=== PATIENT | male | born 1960 | race Caucasian/White ===

== ENCOUNTER 2016-10-05 17:24 | Emergency (ER) | payer MEDICAID ==
[2015-12-18 02:23] VITALS: BMI 36.6
[~2016-10-05 17:24] MED LIST: ATROVENT 0.06%15 ML NS; CELEXA20 MG PO; RESTORIL15 MG PO; RESTORIL7.5 MG
[2016-10-05 18:21] LABS: BASOPHILS 0.5 % (0.0-2.0); EOSINOPHILS 2.3 % (0-7); HEMATOCRIT 47.5 % (42.0-54.0); HEMOGLOBIN 15.6 g/dL (13.5-17.5); IMMATURE GRANULOCYTES 0.3 % (0-5); LYMPHOCYTES 28.7 % (15-50); MCH 29.3 pg (26.0-34.0); MCHC 32.8 g/dL (31.0-37.0); MCV 89.1 fL (80.0-100.0); MEAN PLATELET VOLUME 11.1 fL (7.4-10.4); MONOCYTES 11.1 % (2-11); NEUTROPHILS 57.1 % (40-80); PLATELET COUNT 236 10x3/uL (130-400); RBC 5.33 10x6/uL (4.20-6.10); RDW 13.7 % (11.5-14.5); WBC 7.7 10x3/uL (4.8-10.8)
[2016-10-05 18:41] LABS: ALBUMIN 3.5 g/dL (3.4-5.0); ALKALINE PHOSPHATASE 95 U/L (46-116); ALT (SGPT) 50 U/L (10-68); BILIRUBIN - TOTAL 0.24 mg/dL (0.2-1.3); CALC OSMOLALITY 283 mosm/kg (275-300); CALCIUM 9.5 mg/dL (8.5-10.1); CARBON DIOXIDE 29.5 mmol/L (21.0-32.0); CHLORIDE - SERUM 105 mmol/L (98-107); CREATININE - SERUM 0.9 mg/dL (0.6-1.3); GLUCOSE 104 mg/dL (74-106); POTASSIUM - SERUM 4.1 mmol/L (3.5-5.1); PROTEIN - SERUM 7.2 g/dL (6.4-8.2); SODIUM 142 mmol/L (136-145); UREA NITROGEN 15 mg/dL (7-18); eGFR NON AFRICAN AMERICAN > 90 mL/min (90-120)
[2016-10-05 18:45] LABS: UDS - AMPHET NEGATIVE QUAL (NEGATIVE); UDS - BARB NEGATIVE QUAL (NEGATIVE); UDS - BENZO NEGATIVE QUAL (NEGATIVE); UDS - COCAINE POSITIVE QUAL (NEGATIVE); UDS - METH NEGATIVE QUAL (NEGATIVE); UDS - OPIATE NEGATIVE QUAL (NEGATIVE); UDS - PCP NEGATIVE QUAL (NEGATIVE); UDS - THC NEGATIVE QUAL (NEGATIVE)
[2016-10-05 18:51] LABS: APPEARANCE HAZY (CLEAR); BILIRUBIN NEGATIVE (NEGATIVE); COLOR YELLOW (YELLOW); GLUCOSE NEGATIVE (NEGATIVE); KETONE NEGATIVE (NEGATIVE); LEUKOCYTE ESTERASE 2+ (NEGATIVE); NITRITE POSITIVE (NEGATIVE); PROTEIN NEGATIVE (NEGATIVE); SPECIFIC GRAVITY 1.025 (1.005-1.020); UROBILINOGEN NORMAL (NORMAL)
[2016-10-05 18:52] LABS: WHITE CELLS - URINE 25-50 /hpf (0-5)
[2016-10-05 18:53] LABS: BACTERIA MANY /hpf (NONE SEEN)
== END 2016-10-05 19:18 | disposition home or self-care (01) ==
LOC: D.ER 17:24
PROVIDERS: Emergency Medicine
DX: R45.851 Suicidal ideations (principal); N39.0 Urinary tract infection, site not specified; F32.9 Major depressive disorder, single episode, unspecified; F14.10 Cocaine abuse, uncomplicated; G47.00 Insomnia, unspecified; I50.9 Heart failure, unspecified; F17.200 Nicotine dependence, unspecified, uncomplicated

== ENCOUNTER 2017-03-08 15:50 | Observation (INO) | payer MEDICAID ==
[~2017-03-08] VITALS: Ht 193 cm; Wt 149.8 kg
[2017-03-08 16:40] LABS: BASOPHILS 0.3 % (0-2); EOSINOPHILS 1.9 % (0-7); HEMATOCRIT 45.6 % (42.0-54.0); HEMOGLOBIN 14.7 g/dL (13.5-17.5); IMMATURE GRANULOCYTES 0.1 % (0-5); MCH 29.2 pg (26.0-34.0); MCHC 32.2 g/dL (31.0-37.0); MCV 90.5 fL (80.0-100.0); MEAN PLATELET VOLUME 11.6 fL (7.4-10.4); MONOCYTES 9.7 % (2-11); PLATELET COUNT 210 10x3/uL (130-400); RBC 5.04 10x6/uL (4.20-6.10); WBC 7.7 10x3/uL (4.8-10.8)
[2017-03-08 17:05] LABS: ALBUMIN 3.2 g/dL (3.4-5.0); ALKALINE PHOSPHATASE 94 U/L (46-116); ALT (SGPT) 31 U/L (10-68); APTT 30.2 SECONDS (22.8-39.4); BILIRUBIN - TOTAL 0.16 mg/dL (0.2-1.3); CALC OSMOLALITY 280 mosm/kg (275-300); CALCIUM 8.7 mg/dL (8.5-10.1); CHLORIDE - SERUM 104 mmol/L (98-107); CREATININE - SERUM 0.9 mg/dL (0.6-1.3); GLUCOSE 114 mg/dL (74-106); INR 0.93 (0.85-1.17); POTASSIUM - SERUM 4.3 mmol/L (3.5-5.1); PROTEIN - SERUM 6.9 g/dL (6.4-8.2); PROTIME 12.3 SECONDS (11.6-15.0); SODIUM 140 mmol/L (136-145); UREA NITROGEN 16 mg/dL (7-18); eGFR NON AFRICAN AMERICAN > 90 mL/min (90-120)
[2017-03-08 17:16] LABS: CHOL - HDL RATIO 6.1 ratio (2.3-4.9); CHOLESTEROL, TOTAL 165 mg/dL (0-200); CKMB 2.9 U/L (0.0-3.6); CREATINE KINASE 122 UL (21-232); HDL CHOLESTEROL 27 mg/dL (32-96); LDL CHOLESTEROL 102 mg/dL (0-100); LDL-HDL RATIO 3.8 ratio (1.5-3.5); TRIGLYCERIDE 183 mg/dL (30-200); TROPONIN-I < 0.017 ng/mL (0.000-0.060)
[2017-03-08 20:07] LABS: CREATINE KINASE 101 UL (21-232)
[2017-03-08 20:09] LABS: TROPONIN-I < 0.017 ng/mL (0.000-0.060)
[2017-03-08 21:16] VITALS: Ht 193 cm; Wt 149.8 kg
--- NOTE | 2017-03-08 23:44 | NUR ---
PT RESTING WELL WITHOUT C/O OR DISTRESS NOTED. NO CHANGES NOTED IN ASSESSMENT. CALL LIGHT WITHIN REACH. WILL CONT TO MONITOR.
[2017-03-09 00:59] VITALS: BP 92/72
[2017-03-09 03:07] LABS: CREATINE KINASE 92 UL (21-232)
[2017-03-09 03:11] LABS: TROPONIN-I < 0.017 ng/mL (0.000-0.060)
--- NOTE | 2017-03-09 07:16 | NUR ---
ASSESSESSMENT COMPLETED.TELEMERTY SHOWS SB AT 56. LEFT HAND SL, PATENT. LEFT INSIDE UPER THIGHT WITH A FIRM AREA THAT IN TENDER TO TOUCH, WARM TO TOUCH. NPO UNTIL SEEN BY THE DOCTOR
[2017-03-09 08:02] LABS: CREATINE KINASE 60 UL (21-232); TROPONIN-I < 0.017 ng/mL (0.000-0.060)
[2017-03-09 08:38] VITALS: BP 128/76
--- NOTE | 2017-03-09 09:31 | NUR ---
LYING QUIETLY. DENIES AANY NEEDS. SR UP WITH CALL LIGHT IN REACH. WILL MONITOR
--- NOTE | 2017-03-09 10:29 | NUR ---
PATIENT IS BEING DISCHARGED HOME. COMPLAINTS OF LOWER RIGHT INNER CALF PAIN, SMALL KNOW FELT THERE. MYSELF AND ASHANTI ASKED DR VASQUEZ TO CHECK LEG. HE FELT IT AND TOLD US AND THE PATIENT THAT IT WAS NOT VASCULAR. WILL CONTINUE TO MONITOR.
[2017-03-09 11:46] VITALS: BP 147/71
--- NOTE | 2017-03-09 13:48 | NUR ---
PT HAD BEEN DISCHARGED BUT LEFT WITH OUT WAINTING FOR DISCHARGE PAPERS.
--- NOTE | 2017-03-11 10:11 | HP ---
PATIENT: SHAWN DUGAN MEDICAL RECORD: [id number] ACCOUNT: [id number] LOCATION:[address] : 56 ADMISSION DATE: 03/08/17 HISTORY AND PHYSICAL EXAMINATION ADMITTING DIAGNOSES: 1. Chest pain. 2. Family history of coronary artery disease. HISTORY OF PRESENT ILLNESS: This is a gentleman with no previous cardiac history, no previous medical history, who presents with 2 days of intermittent chest pain. It is a mild pain and he had relief with 1 sublingual nitro yesterday. He has had no further episodes of pain. Troponin is normal. EKG is normal. He does have a family history of coronary artery disease and this is only real risk factor. REVIEW OF SYSTEMS: The patient reports easy bruising but reports no swollen glands. The patient reports no fever, no night sweats, no significant weight gain, no significant weight loss. No significant exercise tolerance. The patient reports no dry eyes, no irritation, no vision change. Patient reports no difficulty hearing and no ear pain. Patient reports no frequent nose bleeds or nose and sinus problems. Patient reports on arm pain on exertion. No shortness of breath while lying down. No history of heart murmur. Patient reports no cough, no wheezing or coughing up blood. Patient reports no abdominal pain, no vomiting. Normal appetite. No diarrhea and not vomiting blood. No nausea and no constipation. Patient reports no incontinence. No difficulty urinating. No hematuria. No increased frequency. Patient reports no muscle aches. No weakness, no arthralgias, no back pain. No swelling of the extremities. Patient reports no abnormal mole, no jaundice, no rashes. Reports no loss of consciousness. No weakness and no numbness. No seizures, dizziness, or headaches. The patient reports no depression, no sleep disturbance, feeling safe in a relationship and no alcohol abuse. Patient reports on fatigue. Reports no runny nose or sinus pressure. No itching, no hives, and no frequent sneezing. PHYSICAL EXAMINATION: GENERAL APPEARANCE: Well-nourished, well-developed, appears stated age. Level of distress, comfortable. PSYCHIATRIC: Mental status, alert, normal affect. Orientation, oriented to time, place and person. EYES: Lids and conjunctiva, noninjected. No discharge, no pallor. ENT: Lips, teeth, gums, normal dentition. Oropharynx, no cyanosis, no pallor. NECK: Carotid arteries, bilateral normal upstroke, no bruits, no thrills. JUGULAR VEINS: No jugular venous pressure or distention. CERVICAL LYMPH NODES: Nontender, nonenlarged. THYROID: Not enlarged. Nontender. No nodules. LUNGS: Respiratory effort, unlabored. CHEST: Normal curvature. No thoracic deformity. No chest wall tenderness. Percussion, resonant. Auscultation, clear. No wheezes, no rales, no rhonchi. CARDIOVASCULAR: Precordial exam, nondisplaced. No heaves or pericardial thrills. Rate and rhythm, regular. Heart sounds, normal S1, normal S2. No S3, no gallop, no rub. Systolic murmur, not heard. Diastolic murmur, not heard. EXTREMITIES: No cyanosis, no edema. Peripheral pulses, full and equal in all extremities, except as noted. No bruits appreciated. ABDOMEN: Soft, nondistended. Normal aorta. No bruit. Nontender. No masses. HISTORY AND PHYSICAL [id number] JOHANNELNICKSHAWN Liver, nontender, no hepatomegaly. Spleen, nontender, no splenomegaly. MUSCULOSKELETAL: No joint tenderness. No joint swelling. No erythema. NEUROLOGICAL: Normal gait, normal strength, normal tone. SKIN: Warm and dry. OVERALL IMPRESSION: Chest pain. Normal EKG, normal troponin. We will plan for risk stratification with stress testing Cardiolite imaging as an outpatient in the near future. TRANSINT:[id number] Voice Confirmation ID: [id number] DOCUMENT ID: [id number] CITLALI VASQUEZ MD at 1011 CC: [id number] DICTATION DATE: 03/09/17 1014 SECURITY SPECIALIST: 03/09/17 1113 DIS IN 03/09/17 [facility] [address] [facility] [place] [address]
--- NOTE | 2017-03-11 10:11 | DS ---
PATIENT:SHAWN PADILLA :56 MEDICAL RECORD: [id number] DISCHARGE SUMMARY ADMISSION DATE: 03/08/17 DISCHARGE DATE: 03/09/17 DISCHARGE DIAGNOSES: 1. Chest pain. 2. Family history of coronary artery disease. HOSPITAL COURSE: Mr. Padilla presents with chest pain. He has a family history of coronary artery disease. His troponin was normal times 3. His EKG was with no changes and normal. He was discharged home to risk stratify with stress testing Cardiolite imaging as an outpatient. TRANSINT:[id number] Voice Confirmation ID: [id number] DOCUMENT ID: [id number] CITLALI VASQUEZ MD at 1011 CC: [id number] DICTATION DATE: 03/09/17 1015 FINANCE ADMIN: 03/09/17 2340 DIS IN 03/09/17 [facility] [id number] [place] [address]
== END 2017-03-09 13:49 | disposition home or self-care (01) ==
LOC: D.ER 15:50 → OBSVTIME 18:26 → D.M2 18:26
PROVIDERS: Emergency Medicine; Family Medicine; ADMIT Internal Medicine Interventional Cardiology
DX: R07.9 Chest pain, unspecified (principal); Z82.49 Family history of ischemic heart disease and other diseases of the circulatory system

== ENCOUNTER → 2017-04-01 06:57 | Outpatient (CLI) | payer MEDICAID ==
[2017-03-08 21:16] VITALS: BMI 40.6
--- NOTE | ~2017-04-01 | ST ---
PATIENT:SHAWN DUGAN MEDICAL RECORD: [id number] SEX: M LOCATION:[facility] ORDER #: ADMISSION DATE: 04/01/17 AGE OF PATIENT: 56 REFERRING PHYSICIAN: INTERPRETING PHYSICIAN: CITLALI VASQUEZ MD NUCLEAR STRESS TEST DESCRIPTION: The patient was exercised according to standard Lexiscan protocol with 32.4 millicuries of sestamibi injected at peak stress. Rest images were done previously with 12.3 millicuries. FINDINGS: GATED IMAGING: Gated SPECT reveals a preserved ejection fraction of 57% with good wall motion, thickening, and brightening throughout all segments. SPECT: SPECT imaging was performed using Cardiolite as the myocardial perfusion imaging agent. There is homogeneous uptake throughout all segments but no evidence of inducible ischemia or previous infarction. OVERALL IMPRESSION: This is a normal nuclear stress test with no evidence of inducible ischemia or previous infarction. Gated SPECT reveals a preserved ejection fraction of 57%. In this patient with ongoing symptomatology, the current scan has a low likelihood of hemodynamically significant coronary artery disease. Would evaluate noncardiac etiology chest discomfort. CITLALI VASQUEZ MD CC: [id number] DICTATION DATE: 04/01/17 1400 COMPOUNDING PHARMACY TECHNICIAN: DM 04/02/17 1148 DEP CLI 04/01/[address] [facility] [address] [place] [address]
== END | disposition home or self-care (01) ==
LOC: D.NM 06:57
DX: R07.9 Chest pain, unspecified (principal)

== ENCOUNTER 2017-09-30 19:20 | Emergency (ER) | payer MEDICAID ==
[2017-03-08 21:16] VITALS: BMI 40.6
[2017-09-30 20:08] LABS: BASOPHILS 0.3 % (0-2); HEMOGLOBIN 13.5 g/dL (13.5-17.5); IMMATURE GRANULOCYTES 0.2 % (0-5); LYMPHOCYTES 28.1 % (15-50); MCH 28.5 pg (26.0-34.0); MCHC 32.1 g/dL (31.0-37.0); MCV 88.8 fL (80.0-100.0); MEAN PLATELET VOLUME 10.8 fL (7.4-10.4); MONOCYTES 8.3 % (2-11); NEUTROPHILS 61.1 % (40-80); PLATELET COUNT 250 10x3/uL (130-400); RBC 4.73 10x6/uL (4.20-6.10); RDW 13.9 % (11.5-14.5); WBC 9.1 10x3/uL (4.8-10.8)
[2017-09-30 20:22] LABS: ALBUMIN 3.2 g/dL (3.4-5.0); ALKALINE PHOSPHATASE 108 U/L (46-116); ALT (SGPT) 22 U/L (10-68); BILIRUBIN - TOTAL 0.12 mg/dL (0.2-1.3); CALC OSMOLALITY 281 mosm/kg (275-300); CALCIUM 8.5 mg/dL (8.5-10.1); CARBON DIOXIDE 26.5 mmol/L (21.0-32.0); CHLORIDE - SERUM 104 mmol/L (98-107); GLUCOSE 142 mg/dL (74-106); POTASSIUM - SERUM 3.7 mmol/L (3.5-5.1); PROTEIN - SERUM 6.6 g/dL (6.4-8.2); SODIUM 141 mmol/L (136-145); UREA NITROGEN 11 mg/dL (7-18); eGFR NON AFRICAN AMERICAN 81 mL/min (90-120)
[2017-09-30 21:45] LABS: APPEARANCE CLEAR (CLEAR); BILIRUBIN NEGATIVE (NEGATIVE); COLOR YELLOW (YELLOW); GLUCOSE NEGATIVE (NEGATIVE); KETONE NEGATIVE (NEGATIVE); NITRITE NEGATIVE (NEGATIVE); PROTEIN NEGATIVE (NEGATIVE); SPECIFIC GRAVITY 1.015 (1.005-1.020); UROBILINOGEN NORMAL (NORMAL)
[2017-09-30 23:31] LABS: UDS - AMPHET NEGATIVE QUAL (NEGATIVE); UDS - BARB NEGATIVE QUAL (NEGATIVE); UDS - BENZO NEGATIVE QUAL (NEGATIVE); UDS - COCAINE NEGATIVE QUAL (NEGATIVE); UDS - OPIATE NEGATIVE QUAL (NEGATIVE); UDS - PCP NEGATIVE QUAL (NEGATIVE); UDS - THC NEGATIVE QUAL (NEGATIVE)
== END 2017-10-01 03:02 | disposition short-term general hospital (02) ==
LOC: D.ER 19:20
PROVIDERS: Family Medicine; Physician Assistant
DX: F41.9 Anxiety disorder, unspecified (principal); F33.9 Major depressive disorder, recurrent, unspecified; R45.851 Suicidal ideations; Z96.651 Presence of right artificial knee joint

== ENCOUNTER 2018-01-30 00:28 | Emergency (ER) | payer MEDICAID ==
[2017-03-08 21:16] VITALS: BMI 40.6
== END 2018-01-30 01:21 | disposition home or self-care (01) ==
LOC: D.ER 00:28
DX: H66.92 Otitis media, unspecified, left ear (principal); H60.92 Unspecified otitis externa, left ear

== ENCOUNTER 2018-02-06 17:37 | Emergency (ER) | payer MEDICAID ==
[2017-03-08 21:16] VITALS: BMI 40.6
[2018-02-06 18:01] LABS: BASOPHILS 0.9 % (0-2); EOSINOPHILS 3.8 % (0-7); HEMATOCRIT 45.3 % (42.0-54.0); IMMATURE GRANULOCYTES 0.3 % (0-5); LYMPHOCYTES 25.9 % (15-50); MCH 28.1 pg (26.0-34.0); MCHC 33.1 g/dL (31.0-37.0); MONOCYTES 8.9 % (2-11); NEUTROPHILS 60.2 % (40-80); RBC 5.33 10x6/uL (4.20-6.10); RDW 14.4 % (11.5-14.5); WBC 7.4 10x3/uL (4.8-10.8)
[2018-02-06 18:15] LABS: ALBUMIN 3.3 g/dL (3.4-5.0); ALKALINE PHOSPHATASE 118 U/L (46-116); ALT (SGPT) 28 U/L (10-68); BILIRUBIN - TOTAL 0.27 mg/dL (0.2-1.3); CALC OSMOLALITY 280 mosm/kg (275-300); CALCIUM 8.9 mg/dL (8.5-10.1); CARBON DIOXIDE 26.8 mmol/L (21.0-32.0); CHLORIDE - SERUM 104 mmol/L (98-107); GLUCOSE 113 mg/dL (74-106); PROTEIN - SERUM 7.1 g/dL (6.4-8.2); SODIUM 140 mmol/L (136-145); UREA NITROGEN 16 mg/dL (7-18); eGFR NON AFRICAN AMERICAN 81 mL/min (90-120)
[2018-02-06 18:19] LABS: PLATELET COUNT 109 10x3/uL (130-400); POTASSIUM - SERUM 4.5 mmol/L (3.5-5.1)
[2018-02-06 18:27] LABS: CKMB 1.7 U/L (0.0-3.6); CREATINE KINASE 118 UL (21-232); PRO BNP 52 pg/mL (0-125)
[2018-02-06 18:33] LABS: TROPONIN-I < 0.017 ng/mL (0.000-0.060)
== END 2018-02-06 18:47 | disposition home or self-care (01) ==
LOC: D.ER 17:37
PROVIDERS: Emergency Medicine
DX: H92.02 Otalgia, left ear (principal); M26.622 Arthralgia of left temporomandibular joint; R22.43 Localized swelling, mass and lump, lower limb, bilateral; F17.200 Nicotine dependence, unspecified, uncomplicated; I45.10 Unspecified right bundle-branch block

== ENCOUNTER 2018-02-26 16:11 | Emergency (ER) | payer MEDICAID ==
[~2018-02-26] VITALS: Ht 193 cm; Wt 136.4 kg
[2018-02-26 16:16] VITALS: Ht 193 cm; Wt 136.4 kg
[2018-02-26 16:50] LABS: BASOPHILS 0.5 % (0-2); EOSINOPHILS 2.1 % (0-7); HEMATOCRIT 47.3 % (42.0-54.0); HEMOGLOBIN 15.8 g/dL (13.5-17.5); IMMATURE GRANULOCYTES 0.2 % (0-5); LYMPHOCYTES 26.4 % (15-50); MCH 28.8 pg (26.0-34.0); MCHC 33.4 g/dL (31.0-37.0); MCV 86.3 fL (80.0-100.0); MEAN PLATELET VOLUME 11.5 fL (7.4-10.4); MONOCYTES 10.2 % (2-11); NEUTROPHILS 60.6 % (40-80); RBC 5.48 10x6/uL (4.20-6.10); RDW 14.5 % (11.5-14.5)
[2018-02-26 16:54] LABS: PLATELET COUNT 219 10x3/uL (130-400)
[2018-02-26 16:55] LABS: APPEARANCE CLEAR (CLEAR); COLOR YELLOW (YELLOW)
[2018-02-26 16:56] LABS: BILIRUBIN NEGATIVE (NEGATIVE); GLUCOSE NEGATIVE (NEGATIVE); KETONE NEGATIVE (NEGATIVE); NITRITE NEGATIVE (NEGATIVE); PROTEIN NEGATIVE (NEGATIVE); UROBILINOGEN NORMAL (NORMAL)
[2018-02-26 17:33] LABS: ALBUMIN 3.5 g/dL (3.4-5.0); ALKALINE PHOSPHATASE 111 U/L (46-116); ALT (SGPT) 34 U/L (10-68); BILIRUBIN - TOTAL 0.27 mg/dL (0.2-1.3); CALC OSMOLALITY 279 mosm/kg (275-300); CALCIUM 9.3 mg/dL (8.5-10.1); CHLORIDE - SERUM 103 mmol/L (98-107); GLUCOSE 112 mg/dL (74-106); POTASSIUM - SERUM 3.9 mmol/L (3.5-5.1); PROTEIN - SERUM 7.6 g/dL (6.4-8.2); SODIUM 140 mmol/L (136-145); UREA NITROGEN 13 mg/dL (7-18); eGFR NON AFRICAN AMERICAN 81 mL/min (90-120)
[2018-02-26 18:14] LABS: UDS - AMPHET POSITIVE QUAL (NEGATIVE); UDS - BARB NEGATIVE QUAL (NEGATIVE); UDS - BENZO NEGATIVE QUAL (NEGATIVE); UDS - COCAINE NEGATIVE QUAL (NEGATIVE); UDS - OPIATE NEGATIVE QUAL (NEGATIVE); UDS - PCP NEGATIVE QUAL (NEGATIVE); UDS - THC NEGATIVE QUAL (NEGATIVE)
[2018-02-26 20:12] VITALS: BP 134/74
== END 2018-02-26 22:13 ==
LOC: D.ER 16:11
PROVIDERS: Family Medicine
DX: F32.9 Major depressive disorder, single episode, unspecified (principal); R45.851 Suicidal ideations; Z86.59 Personal history of other mental and behavioral disorders; F17.200 Nicotine dependence, unspecified, uncomplicated

== ENCOUNTER 2018-03-24 14:05 | Emergency (ER) | payer MEDICAID ==
[~2018-03-24] VITALS: Ht 193 cm; Wt 136.4 kg
[2018-03-24 14:10] VITALS: Ht 193 cm; Wt 136.4 kg
[2018-03-24] MEDS ORDERED: DESERYL100 MG PO (14:17)
[2018-03-24] MEDS ORDERED: SEROQUEL100 MG PO (14:17)
[2018-03-24 14:50] LABS: APPEARANCE CLEAR (CLEAR); COLOR YELLOW (YELLOW); UDS - AMPHET NEGATIVE QUAL (NEGATIVE); UDS - BARB NEGATIVE QUAL (NEGATIVE); UDS - BENZO NEGATIVE QUAL (NEGATIVE); UDS - COCAINE NEGATIVE QUAL (NEGATIVE); UDS - OPIATE NEGATIVE QUAL (NEGATIVE); UDS - PCP NEGATIVE QUAL (NEGATIVE); UDS - THC NEGATIVE QUAL (NEGATIVE)
[2018-03-24 14:51] LABS: BILIRUBIN NEGATIVE (NEGATIVE); GLUCOSE NEGATIVE (NEGATIVE); KETONE NEGATIVE (NEGATIVE); NITRITE NEGATIVE (NEGATIVE); PROTEIN NEGATIVE (NEGATIVE); UROBILINOGEN NORMAL (NORMAL)
[2018-03-24 14:53] LABS: BACTERIA FEW /hpf (NONE SEEN); RED CELLS - URINE 0-5 /hpf (0-5)
[2018-03-24 15:19] LABS: BASOPHILS 0.6 % (0-2); EOSINOPHILS 1.3 % (0-7); HEMATOCRIT 45.1 % (42.0-54.0); IMMATURE GRANULOCYTES 0.3 % (0-5); LYMPHOCYTES 22.7 % (15-50); MCH 28.7 pg (26.0-34.0); MCHC 33.3 g/dL (31.0-37.0); MCV 86.4 fL (80.0-100.0); MEAN PLATELET VOLUME 11.3 fL (7.4-10.4); MONOCYTES 7.7 % (2-11); NEUTROPHILS 67.4 % (40-80); RBC 5.22 10x6/uL (4.20-6.10); RDW 13.9 % (11.5-14.5)
[2018-03-24 15:27] LABS: PLATELET COUNT 267 10x3/uL (130-400)
[2018-03-24 15:32] LABS: ALBUMIN 3.2 g/dL (3.4-5.0); ALKALINE PHOSPHATASE 104 U/L (46-116); ALT (SGPT) 22 U/L (10-68); BILIRUBIN - TOTAL 0.19 mg/dL (0.2-1.3); CALC OSMOLALITY 284 mosm/kg (275-300); CALCIUM 8.7 mg/dL (8.5-10.1); CARBON DIOXIDE 29.7 mmol/L (21.0-32.0); CHLORIDE - SERUM 107 mmol/L (98-107); CREATININE - SERUM 0.9 mg/dL (0.6-1.3); GLUCOSE 89 mg/dL (74-106); POTASSIUM - SERUM 4.1 mmol/L (3.5-5.1); SODIUM 143 mmol/L (136-145); UREA NITROGEN 14 mg/dL (7-18); eGFR NON AFRICAN AMERICAN > 90 mL/min (90-120)
[2018-03-24 15:42] LABS: THYROID STIMULATING HORMONE 0.28 uIU/mL (0.36-3.74)
[2018-03-24 22:03] VITALS: BP 132/74
== END 2018-03-24 22:07 ==
LOC: D.ER 14:05
PROVIDERS: Family Medicine
DX: F32.9 Major depressive disorder, single episode, unspecified (principal); R51 Headache; R45.851 Suicidal ideations; F17.200 Nicotine dependence, unspecified, uncomplicated

== ENCOUNTER 2018-05-04 17:53 | Emergency (ER) | payer MEDICAID ==
[~2018-05-04] VITALS: Ht 193 cm; Wt 131.8 kg
[~2018-05-04 17:53] MED LIST changes: +DESERYL100 MG PO; +SEROQUEL100 MG PO
[2018-05-04 18:00] VITALS: Ht 193 cm; Wt 131.8 kg
[2018-05-04 18:26] LABS: APPEARANCE CLEAR (CLEAR); BILIRUBIN NEGATIVE (NEGATIVE); COLOR YELLOW (YELLOW); GLUCOSE NEGATIVE (NEGATIVE); KETONE NEGATIVE (NEGATIVE); NITRITE NEGATIVE (NEGATIVE); PROTEIN NEGATIVE (NEGATIVE); SPECIFIC GRAVITY 1.005 (1.005-1.020); UROBILINOGEN NORMAL (NORMAL)
[2018-05-04 18:29] LABS: BASOPHILS 0.6 % (0-2); EOSINOPHILS 1.8 % (0-7); HEMATOCRIT 45.5 % (42.0-54.0); HEMOGLOBIN 14.9 g/dL (13.5-17.5); IMMATURE GRANULOCYTES 0.2 % (0-5); MCH 28.5 pg (26.0-34.0); MCHC 32.7 g/dL (31.0-37.0); MEAN PLATELET VOLUME 11.7 fL (7.4-10.4); MONOCYTES 9.1 % (2-11); NEUTROPHILS 57.3 % (40-80); PLATELET COUNT 218 10x3/uL (130-400); RBC 5.23 10x6/uL (4.20-6.10); RDW 14.1 % (11.5-14.5); WBC 6.6 10x3/uL (4.8-10.8)
[2018-05-04 18:29] LABS: UDS - AMPHET NEGATIVE QUAL (NEGATIVE); UDS - BARB NEGATIVE QUAL (NEGATIVE); UDS - BENZO NEGATIVE QUAL (NEGATIVE); UDS - COCAINE NEGATIVE QUAL (NEGATIVE); UDS - OPIATE NEGATIVE QUAL (NEGATIVE); UDS - PCP NEGATIVE QUAL (NEGATIVE); UDS - THC NEGATIVE QUAL (NEGATIVE)
[2018-05-04 18:30] LABS: BACTERIA FEW /hpf (NONE SEEN); EPITHELIAL CELLS NSEEN /hpf (0-5); RED CELLS - URINE RARE /hpf (0-5); WHITE CELLS - URINE OCC /hpf (0-5)
[2018-05-04 18:45] LABS: ALKALINE PHOSPHATASE 101 U/L (46-116); ALT (SGPT) 26 U/L (10-68); BILIRUBIN - TOTAL 0.19 mg/dL (0.2-1.3); CALC OSMOLALITY 281 mosm/kg (275-300); CALCIUM 8.2 mg/dL (8.5-10.1); CARBON DIOXIDE 27.2 mmol/L (21.0-32.0); CHLORIDE - SERUM 105 mmol/L (98-107); CREATININE - SERUM 0.9 mg/dL (0.6-1.3); POTASSIUM - SERUM 3.8 mmol/L (3.5-5.1); PROTEIN - SERUM 6.4 g/dL (6.4-8.2); SODIUM 141 mmol/L (136-145); UREA NITROGEN 11 mg/dL (7-18); eGFR NON AFRICAN AMERICAN > 90 mL/min (90-120)
[2018-05-04 18:49] LABS: GLUCOSE 137 mg/dL (74-106)
[2018-05-05 11:04] VITALS: BP 113/60
== END 2018-05-05 12:02 ==
LOC: D.ER 17:53
PROVIDERS: Family Medicine
DX: F32.9 Major depressive disorder, single episode, unspecified (principal)

== ENCOUNTER 2018-06-15 07:27 | Emergency (ER) | payer MEDICAID ==
[~2018-06-15] VITALS: Ht 193 cm; Wt 131.8 kg
[2018-06-15 07:29] VITALS: Ht 193 cm; Wt 131.8 kg
[2018-06-15] MEDS ORDERED: STERAPRED DS 1210 MG PO (07:36)
[2018-06-15 07:46] VITALS: BP 106/62
== END 2018-06-15 07:47 | disposition home or self-care (01) ==
LOC: D.ER 07:27
DX: L23.7 Allergic contact dermatitis due to plants, except food (principal); F17.200 Nicotine dependence, unspecified, uncomplicated

== ENCOUNTER 2018-11-16 20:58 | Emergency (ER) | payer MEDICAID ==
[~2018-11-16] VITALS: Ht 193 cm; Wt 127.0 kg
[~2018-11-16 20:58] MED LIST changes: +STERAPRED DS 1210 MG PO
[2018-11-16 21:04] VITALS: Ht 193 cm; Wt 127.0 kg
[2018-11-16 21:28] LABS: APTT 31.5 SECONDS (22.8-39.4); INR 0.92 (0.85-1.17); PROTIME 11.9 SECONDS (11.6-15.0)
[2018-11-16 21:37] LABS: ALBUMIN 3.2 g/dL (3.4-5.0); ALKALINE PHOSPHATASE 109 U/L (46-116); ALT (SGPT) 28 U/L (10-68); BILIRUBIN - TOTAL 0.27 mg/dL (0.2-1.3); CALC OSMOLALITY 282 mosm/kg (275-300); CALCIUM 8.3 mg/dL (8.5-10.1); CARBON DIOXIDE 25.5 mmol/L (21.0-32.0); CHLORIDE - SERUM 105 mmol/L (98-107); CREATININE - SERUM 0.8 mg/dL (0.6-1.3); GLUCOSE 106 mg/dL (74-106); POTASSIUM - SERUM 4.1 mmol/L (3.5-5.1); PROTEIN - SERUM 6.8 g/dL (6.4-8.2); SODIUM 141 mmol/L (136-145); UREA NITROGEN 17 mg/dL (7-18); eGFR NON AFRICAN AMERICAN > 90 mL/min (90-120)
[2018-11-16 21:47] LABS: CREATINE KINASE 127 UL (21-232); PRO BNP 179 pg/mL (0-125)
[2018-11-16 21:49] LABS: CKMB 0.5 U/L (0.0-3.6); TROPONIN-I < 0.017 ng/mL (0.000-0.060)
[2018-11-16 21:53] LABS: BASOPHILS 0.5 % (0-2); EOSINOPHILS 2.4 % (0-7); HEMOGLOBIN 15.1 g/dL (13.5-17.5); IMMATURE GRANULOCYTES 0.1 % (0-5); LYMPHOCYTES 35.5 % (15-50); MCH 28.8 pg (26.0-34.0); MCHC 32.8 g/dL (31.0-37.0); MCV 87.8 fL (80.0-100.0); MEAN PLATELET VOLUME 12.1 fL (7.4-10.4); MONOCYTES 8.2 % (2-11); NEUTROPHILS 53.3 % (40-80); PLATELET COUNT 249 10x3/uL (130-400); RBC 5.24 10x6/uL (4.20-6.10); WBC 8.1 10x3/uL (4.8-10.8)
[2018-11-16 23:42] VITALS: BP 120/74
== END 2018-11-16 23:43 | disposition home or self-care (01) ==
LOC: D.ER 20:58
PROVIDERS: Family Medicine
DX: R60.0 Localized edema (principal); F17.200 Nicotine dependence, unspecified, uncomplicated; M79.672 Pain in left foot; M79.671 Pain in right foot

== ENCOUNTER 2018-12-15 16:54 | Emergency (ER) | payer MEDICAID ==
[~2018-12-15] VITALS: Ht 193 cm; Wt 136.4 kg
[2018-12-15 17:12] VITALS: Ht 193 cm; Wt 136.4 kg
[2018-12-15] MEDS ORDERED: ULTRAM50 MG PO (18:42)
[2018-12-15 19:15] VITALS: BP 112/58
== END 2018-12-15 19:17 | disposition home or self-care (01) ==
LOC: D.ER 16:54
DX: S20.212A Contusion of left front wall of thorax, initial encounter (principal); V19.9XXA Pedal cyclist (driver) (passenger) injured in unspecified traffic accident, initial encounter; Y93.89 Activity, other specified; Y92.410 Unspecified street and highway as the place of occurrence of the external cause

== ENCOUNTER 2019-01-26 16:39 | Emergency (ER) | payer MEDICAID ==
[~2019-01-26] VITALS: Ht 193 cm; Wt 136.4 kg
[~2019-01-26 16:39] MED LIST changes: +ULTRAM50 MG PO
[2019-01-26 16:47] VITALS: BP 107/62; Ht 193 cm; Wt 136.4 kg
== END 2019-01-26 19:15 | disposition home or self-care (01) ==
LOC: D.ER 16:39
DX: R29.898 Other symptoms and signs involving the musculoskeletal system (principal)

== ENCOUNTER 2019-02-13 21:24 | Emergency (ER) | payer MEDICAID ==
[~2019-02-13] VITALS: Ht 193 cm; Wt 136.4 kg
[2019-02-13 21:40] VITALS: Ht 193 cm; Wt 136.4 kg
[2019-02-13] MEDS ORDERED: [UNRECOGNIZED DRUG - REMARK] (21:41)
[2019-02-13 21:58] LABS: APPEARANCE CLEAR (CLEAR); BILIRUBIN NEGATIVE (NEGATIVE); COLOR STRAW (YELLOW); GLUCOSE NEGATIVE (NEGATIVE); KETONE NEGATIVE (NEGATIVE); NITRITE NEGATIVE (NEGATIVE); PROTEIN NEGATIVE (NEGATIVE); SPECIFIC GRAVITY 1.025 (1.005-1.020); UROBILINOGEN NORMAL (NORMAL)
[2019-02-13 22:04] LABS: UDS - AMPHET NEGATIVE QUAL (NEGATIVE); UDS - BARB NEGATIVE QUAL (NEGATIVE); UDS - BENZO NEGATIVE QUAL (NEGATIVE); UDS - COCAINE NEGATIVE QUAL (NEGATIVE); UDS - OPIATE NEGATIVE QUAL (NEGATIVE); UDS - PCP NEGATIVE QUAL (NEGATIVE); UDS - THC NEGATIVE QUAL (NEGATIVE)
[2019-02-13 22:07] LABS: BASOPHILS 0.3 % (0-2); EOSINOPHILS 0.8 % (0-7); HEMATOCRIT 45.2 % (42.0-54.0); HEMOGLOBIN 15.1 g/dL (13.5-17.5); IMMATURE GRANULOCYTES 0.4 % (0-5); LYMPHOCYTES 24.3 % (15-50); MCH 29.1 pg (26.0-34.0); MCHC 33.4 g/dL (31.0-37.0); MCV 87.1 fL (80.0-100.0); MEAN PLATELET VOLUME 11.1 fL (7.4-10.4); MONOCYTES 9.5 % (2-11); NEUTROPHILS 64.7 % (40-80); PLATELET COUNT 235 10x3/uL (130-400); RBC 5.19 10x6/uL (4.20-6.10); RDW 14.1 % (11.5-14.5); WBC 9.5 10x3/uL (4.8-10.8)
[2019-02-13 22:22] LABS: ALBUMIN 3.3 g/dL (3.4-5.0); ANION GAP 14.4 mmol/L (8-16); BILIRUBIN - TOTAL 0.17 mg/dL (0.2-1.3); CALCIUM 8.5 mg/dL (8.5-10.1); CARBON DIOXIDE 25.9 mmol/L (21.0-32.0); CREATININE - SERUM 1.1 mg/dL (0.6-1.3); MAGNESIUM - SERUM 1.9 mg/dL (1.8-2.4); POTASSIUM - SERUM 3.3 mmol/L (3.5-5.1); PROTEIN - SERUM 6.8 g/dL (6.4-8.2); URIC ACID 6.7 mg/dL (2.6-7.2)
[2019-02-14 02:54] VITALS: BP 125/78
== END 2019-02-14 03:12 ==
LOC: D.ER 21:24
PROVIDERS: Emergency Medicine
DX: R45.851 Suicidal ideations (principal); F32.9 Major depressive disorder, single episode, unspecified

== ENCOUNTER → 2019-04-29 06:36 | Outpatient (CLI) | payer MEDICAID ==
[2019-02-13 21:40] VITALS: BMI 36.6
[~2019-04-29 06:36] MED LIST changes: +[UNRECOGNIZED DRUG - REMARK]
== END | disposition home or self-care (01) ==
LOC: D.US 06:36
PROVIDERS: ATTEND Nurse Practitioner
DX: G57.73 Causalgia of bilateral lower limbs (principal)

== ENCOUNTER 2019-06-04 16:49 | Emergency (ER) | payer MEDICAID ==
[~2019-06-04] VITALS: Ht 193 cm; Wt 131.8 kg
[2019-06-04 16:51] VITALS: Ht 193 cm; Wt 131.8 kg
[2019-06-04] MEDS ORDERED: SEROQUEL50 MG PO (16:54)
[2019-06-04] MEDS ORDERED: NEURONTIN 300300 MG PO (16:55)
[2019-06-04] MEDS ORDERED: TRAZODONE HCL150 MG PO (16:55)
[2019-06-04 17:14] LABS: BASOPHILS 0.5 % (0-2); EOSINOPHILS 1.9 % (0-7); HEMATOCRIT 45.2 % (42.0-54.0); HEMOGLOBIN 15.1 g/dL (13.5-17.5); IMMATURE GRANULOCYTES 0.1 % (0-5); LYMPHOCYTES 29.1 % (15-50); MCHC 33.4 g/dL (31.0-37.0); MCV 86.8 fL (80.0-100.0); MEAN PLATELET VOLUME 11.1 fL (7.4-10.4); MONOCYTES 8.3 % (2-11); NEUTROPHILS 60.1 % (40-80); PLATELET COUNT 210 10x3/uL (130-400); RBC 5.21 10x6/uL (4.20-6.10); RDW 13.7 % (11.5-14.5); WBC 7.8 10x3/uL (4.8-10.8)
[2019-06-04 17:19] LABS: APPEARANCE CLEAR (CLEAR); COLOR YELLOW (YELLOW); SPECIFIC GRAVITY 1.015 (1.005-1.020)
[2019-06-04 17:20] LABS: BILIRUBIN NEGATIVE (NEGATIVE); GLUCOSE NEGATIVE (NEGATIVE); KETONE NEGATIVE (NEGATIVE); NITRITE POSITIVE (NEGATIVE); PROTEIN NEGATIVE (NEGATIVE); UROBILINOGEN NORMAL (NORMAL)
--- NOTE | 2019-06-04 17:21 | NUR ---
ACCORDING TO THE SUICIDE ASSESSMENT THE PATIENT RATES HIGH AND WILL REQUIRE A 1:1 OBSERVATION.
[2019-06-04 17:22] LABS: RED CELLS - URINE 0-5 /hpf (0-5); WHITE CELLS - URINE 0-5 /hpf (0-5)
[2019-06-04 17:23] LABS: BACTERIA MODERATE /hpf (NONE SEEN)
[2019-06-04 17:29] LABS: UDS - AMPHET POSITIVE QUAL (NEGATIVE); UDS - BARB NEGATIVE QUAL (NEGATIVE); UDS - BENZO NEGATIVE QUAL (NEGATIVE); UDS - COCAINE NEGATIVE QUAL (NEGATIVE); UDS - OPIATE NEGATIVE QUAL (NEGATIVE); UDS - PCP NEGATIVE QUAL (NEGATIVE); UDS - THC NEGATIVE QUAL (NEGATIVE)
[2019-06-04 17:30] LABS: ALBUMIN 3.2 g/dL (3.4-5.0); ALKALINE PHOSPHATASE 100 U/L (46-116); ALT (SGPT) 23 U/L (10-68); BILIRUBIN - TOTAL 0.22 mg/dL (0.2-1.3); CALC OSMOLALITY 284 mosm/kg (275-300); CALCIUM 8.4 mg/dL (8.5-10.1); CARBON DIOXIDE 28.6 mmol/L (21.0-32.0); CHLORIDE - SERUM 105 mmol/L (98-107); CREATININE - SERUM 0.9 mg/dL (0.6-1.3); GLUCOSE 101 mg/dL (74-106); MAGNESIUM - SERUM 1.9 mg/dL (1.8-2.4); POTASSIUM - SERUM 4.1 mmol/L (3.5-5.1); PROTEIN - SERUM 6.8 g/dL (6.4-8.2); SODIUM 142 mmol/L (136-145); UREA NITROGEN 18 mg/dL (7-18); eGFR NON AFRICAN AMERICAN > 90 mL/min (90-120)
[2019-06-04 23:03] VITALS: BP 134/74
== END 2019-06-04 23:03 ==
LOC: D.ER 16:49
PROVIDERS: Family Medicine
DX: R45.851 Suicidal ideations (principal)

== ENCOUNTER 2019-07-16 16:47 | Emergency (ER) | payer MEDICAID ==
[~2019-07-16] VITALS: Ht 193 cm; Wt 131.8 kg
[~2019-07-16 16:47] MED LIST changes: +NEURONTIN 300300 MG PO; +SEROQUEL50 MG PO; +TRAZODONE HCL150 MG PO
[2019-07-16 16:48] VITALS: Ht 193 cm; Wt 131.8 kg
[2019-07-16 17:04] LABS: APPEARANCE CLEAR (CLEAR); BILIRUBIN NEGATIVE (NEGATIVE); COLOR YELLOW (YELLOW); GLUCOSE NEGATIVE (NEGATIVE); KETONE NEGATIVE (NEGATIVE); NITRITE NEGATIVE (NEGATIVE); PROTEIN TRACE mg/dL (NEGATIVE); SPECIFIC GRAVITY 1.015 (1.005-1.020); UROBILINOGEN NORMAL (NORMAL)
[2019-07-16 17:05] LABS: BACTERIA FEW /hpf (NEGATIVE); RED CELLS - URINE OCC /hpf (0-5); WHITE CELLS - URINE OCC /hpf (NEGATIVE)
[2019-07-16 17:14] LABS: UDS - AMPHET NEGATIVE QUAL (NEGATIVE); UDS - BARB NEGATIVE QUAL (NEGATIVE); UDS - BENZO NEGATIVE QUAL (NEGATIVE); UDS - COCAINE NEGATIVE QUAL (NEGATIVE); UDS - OPIATE NEGATIVE QUAL (NEGATIVE); UDS - PCP NEGATIVE QUAL (NEGATIVE); UDS - THC POSITIVE QUAL (NEGATIVE)
[2019-07-16 17:19] LABS: BASOPHILS 0.4 % (0-2); EOSINOPHILS 2.2 % (0-7); HEMATOCRIT 46.3 % (42.0-54.0); HEMOGLOBIN 15.1 g/dL (13.5-17.5); IMMATURE GRANULOCYTES 0.4 % (0-5); LYMPHOCYTES 30.6 % (15-50); MCH 29.2 pg (26.0-34.0); MCHC 32.6 g/dL (31.0-37.0); MCV 89.4 fL (80.0-100.0); MEAN PLATELET VOLUME 11.4 fL (7.4-10.4); MONOCYTES 10.4 % (2-11); PLATELET COUNT 226 10x3/uL (130-400); RBC 5.18 10x6/uL (4.20-6.10); RDW 13.9 % (11.5-14.5); WBC 7.8 10x3/uL (4.8-10.8)
[2019-07-16 17:31] LABS: CALC OSMOLALITY 281 mosm/kg (275-300); CARBON DIOXIDE 30.8 mmol/L (21.0-32.0); CHLORIDE - SERUM 106 mmol/L (98-107); CREATININE - SERUM 0.9 mg/dL (0.6-1.3); GLUCOSE 106 mg/dL (74-106); POTASSIUM - SERUM 4.2 mmol/L (3.5-5.1); SODIUM 141 mmol/L (136-145); UREA NITROGEN 16 mg/dL (7-18); eGFR NON AFRICAN AMERICAN > 90 mL/min (90-120)
[2019-07-16 17:38] LABS: ALBUMIN 3.4 g/dL (3.4-5.0); ALKALINE PHOSPHATASE 109 U/L (46-116); ALT (SGPT) 19 U/L (10-68); BILIRUBIN - TOTAL 0.18 mg/dL (0.2-1.3); PROTEIN - SERUM 6.8 g/dL (6.4-8.2)
--- NOTE | 2019-07-16 18:15 | NUR ---
DR. MARRERO NOTFIED AND SITTER ORDERED. SITTER IN LINE OF SIGHT. NOTIFIED CHARGE NURSE AND ATTENDING IN REGARDS TO ASSESSMENT FINDINGS. RESOURCES GIVEN TO PT AND SAFETY PLAN INITIATED.
[2019-07-16 20:18] VITALS: BP 143/68
== END 2019-07-17 00:55 ==
LOC: D.ER 16:47
PROVIDERS: Family Medicine
DX: R45.851 Suicidal ideations (principal)

== ENCOUNTER 2019-10-09 18:09 | Emergency (ER) | payer MEDICAID ==
[~2019-10-09] VITALS: Ht 195.6 cm; Wt 131.8 kg
[2019-10-09 18:13] VITALS: Ht 195.6 cm; Wt 131.8 kg
[2019-10-09 18:40] LABS: HEMATOCRIT 44.9 % (42.0-54.0); HEMOGLOBIN 14.7 g/dL (13.5-17.5); MCH 29.3 pg (26.0-34.0); MCHC 32.7 g/dL (31.0-37.0); MCV 89.6 fL (80.0-100.0); MEAN PLATELET VOLUME 11.7 fL (7.4-10.4); PLATELET COUNT 221 10x3/uL (130-400); RBC 5.01 10x6/uL (4.20-6.10); RDW 14.2 % (11.5-14.5); WBC 7.6 10x3/uL (4.8-10.8)
[2019-10-09 18:48] LABS: ANION GAP 10.4 mmol/L (8-16); CALCIUM 8.4 mg/dL (8.5-10.1); CARBON DIOXIDE 32.6 mmol/L (21.0-32.0); CREATININE - SERUM 1.1 mg/dL (0.6-1.3)
[2019-10-09 18:59] LABS: EOSINOPHILS 6 % (0-7); LYMPHOCYTES 32 % (15-50); MONOCYTES 2 % (2-11); NEUTROPHILS 60 % (40-80); PLATELET ESTIMATE NORMAL
[2019-10-09 19:00] LABS: ROULEAUX OCC; TEAR DROP CELLS 1+
[2019-10-09 19:02] LABS: ALBUMIN 3.2 g/dL (3.4-5.0); BILIRUBIN - TOTAL 0.17 mg/dL (0.2-1.3); PROTEIN - SERUM 6.7 g/dL (6.4-8.2)
--- NOTE | 2019-10-09 19:05 | NUR ---
DR. MARRERO NOTIFIED AND SITTER ORDERED. SITTER AT BEDSIDE. NOTIFIED CHARGE NURSE AND ATTENDING IN REGARDS TO ASSESSMENT FINDINGS. RESOURCES GIVEN TO PT AND SAFETY PLAN REFUSED.
[2019-10-09 19:26] LABS: APPEARANCE CLEAR (CLEAR); BILIRUBIN NEGATIVE (NEGATIVE); COLOR YELLOW (YELLOW); GLUCOSE NEGATIVE (NEGATIVE); KETONE NEGATIVE (NEGATIVE); NITRITE NEGATIVE (NEGATIVE); PROTEIN TRACE mg/dL (NEGATIVE); UROBILINOGEN NORMAL (NORMAL)
[2019-10-09 19:33] LABS: UDS - AMPHET NEGATIVE QUAL (NEGATIVE); UDS - BARB NEGATIVE QUAL (NEGATIVE); UDS - BENZO NEGATIVE QUAL (NEGATIVE); UDS - COCAINE NEGATIVE QUAL (NEGATIVE); UDS - OPIATE NEGATIVE QUAL (NEGATIVE); UDS - PCP NEGATIVE QUAL (NEGATIVE); UDS - THC NEGATIVE QUAL (NEGATIVE)
[2019-10-10 01:22] VITALS: BP 125/78
== END 2019-10-10 01:23 ==
LOC: D.ER 18:09
PROVIDERS: Emergency Medicine
DX: R45.851 Suicidal ideations (principal); F41.9 Anxiety disorder, unspecified; F32.9 Major depressive disorder, single episode, unspecified; I50.9 Heart failure, unspecified; J44.9 Chronic obstructive pulmonary disease, unspecified; Z72.0 Tobacco use

== ENCOUNTER 2020-03-07 18:48 | Inpatient (IN) | payer MEDICAID ==
[~2020-03-07] VITALS: Ht 195.6 cm; Wt 149.8 kg
[2020-03-07] VITALS (8 sets, daily range): BP systolic 97–129; BP diastolic 38–65; BMI 38.7
--- NOTE | ~2020-03-07 | OP ---
PATIENT NAME: SHAWN DUGAN MEDICAL RECORD: [id number] :56 [facility] ADMISSION DATE:03/07/20 SURGEON: MADELIN MARTINS MD DATE OF OPERATION: 03/08/2020 PROCEDURE: Lead portion of permanent pacemaker placement. INDICATION: Sick sinus syndrome with sinus arrest and pauses. SURGEON: Dr. Stiles DESCRIPTION OF PROCEDURE: After left subclavian was cannulated via modified Seldinger technique via Dr. Stiles, first, under fluoroscopic guidance, we placed the RV lead in the RV apex without difficulty. After adequate R waves and thresholds were obtained, then again under fluoroscopic guidance, I placed the right atrial lead in the right atrial appendage without difficulty. After adequate P waves and thresholds were then obtained, the leads were attached to appropriate poles of the generator and pocket was closed via Dr. Stiles. IMPRESSION: Successful lead portion of permanent pacemaker placement. ESTIMATED BLOOD LOSS: Minimal. COMPLICATIONS: None. DISPOSITION: To the floor, stable. TRANSINT:[id number] Voice Confirmation ID: [id number] DOCUMENT ID: [id number] MADELIN MARTINS MD CC: [id number] DICTATION DATE: 03/08/20 1347 MOTOR PATROL OPERATOR: 03/08/20 2351 ADM IN [facility] [address] [place] [address]
--- NOTE | ~2020-03-07 | HEMODYNAMI ---
PATIENT:SHAWN DUGAN MEDICAL RECORD: [id number] : 56 LOCATION:[facility] ADMISSION DATE: 03/07/20 Generatedon:03/08/202013:44 Patient name: SHANW DUGAN Patient #: [id number] SSN: DO B: 1960 Date of study: 03/08/2020 Page: Of Hemodynamic Procedure Report Patient Data Patient Demographics Procedure consent was obtained First Name: SHAWN Gender: Male Last Name: KAILEE : 1960 [facility] Initial: YELITZA Age: 59 year(s) Patient #: [id number] Race: Unknown Additional ID: [id number] Contact details Address: [address] [place] [address] [place] State: [place] City: [place] Zip code: [address] Past Medical History Allergies: No known allergies Admission Admission Data Admission Date: 03/07/2020 Admission Time: 21:05 Arrival Date: 03/08/2020 Arrival Time: 0:00 Room #: [id number] Height (in.): 77.17 BSA: 2.76 (m2) Height (cm.): 196 BMI: 38.53 (kg/m2) Weight (lbs.): 326.29 Weight (kg.): 148 Lab Results Lab Result Date: 03/08/2020 Lab Result Time: 0:00 Biochemistry Name Units Result Min Max BUN mg/dl 18 --(---*)-- 7 18 CK-MB ng/ml 1.8 --(-*--)-- 0 3.6 Creatinine mg/dl 1 --(--*-)-- 0.6 1.3 eGFR ml/min 81 *-(----)-- 90 120 NONAFRICAN CBC Name Units Result Min Max Hematocrit % 45.6 --(-*--)-- 42 54 Hemoglobin g/dl 14.4 --(*---)-- 13.5 17.5 Procedure Procedure Types Cath Procedure Diagnostic Procedure PPM/ICD PPM Dual Implant Sedation Charges Moderate Sedation up to 30 minutes Procedure Description Procedure Date Procedure Date: 03/08/2020 Procedure Start Time: 13:09 Procedure End Time: 13:42 Procedure Staff Name Function Terrance Milton MD Performing Physician Lui Stiles MD Assisting physician Hermila Trejo RT Monitor Dayana Chavez RN Nurse Maegan Padilla RT Scrub María Elena Schneider RT Medical Transcriptionist Procedure Data Cath Procedure Fluoroscopy Diagnostic fluoroscopy Total fluoroscopy Time: 5.8 time: 5.8 min min Diagnostic fluoroscopy Total fluoroscopy dose: dose: 474.17 mGy 474.17 mGy Estimated blood loss: 5 ml Procedure Complications No complications Procedure Medications Medication Administration Route Dosage 0.9% NaCl I.V. 100 ml/hr Oxygen etCO2 Nasal cannula 2 l/min Lidocaine 1% added to field 20 Ancef (1Gm/50ml NS) I.V.P.B 1 g Ancef Irrigation Topical 1 g (1gm/500ml NS) Versed I.V. 2 mg Fentanyl I.V. 50 mcg Versed I.V. 2 mg Fentanyl I.V. 50 mcg Versed I.V. 2 mg Fentanyl I.V. 50 mcg Hemodynamics Rest BSA: 2.76 (m2) HGB: 14.4 (g/dl) O2 Consumption: Estimated: 311.54 (ml/min) O2 Co nsumption indexed: Estimated:112.88 (ml/min/m) Heart Rate: 58 (bpm) Snapshots Pre Cath Intra NCS Post Cath Vital Signs Time Heart Resp SPO2 etCO2 NIBP (mmHg) Rhythm Pain Sedation Rate (ipm) (%) (mmHg) Status Level (bpm) 12:48:40 43 15 100 0 Measuring SB 0 (11) 10(A) , No pain 12:49:21 43 17 100 0 135/74(102) SB 0 (11) 10(A) , No pain 12:53:35 58 21 100 24 151/76(125) SB 0 (11) 10(A) , No pain 12:57:58 45 23 100 24.6 126/70(91) SB 0 (11) 10(A) , No pain 13:02:08 59 14 96 24 113/75(92) SB 0 (11) 10(A) , No pain 13:07:07 51 11 97 33.1 Measuring SB 0 (11) 10(A) , No pain 13:07:13 55 11 97 33.1 125/73(91) SB 0 (11) 10(A) , No pain 13:11:23 72 15 95 26.3 130/77(101) NSR 0 (11) 10(A) , No pain 13:15:36 46 14 95 35.4 115/73(98) SB 0 (11) 10(A) , No pain 13:19:42 69 11 98 17.3 130/77(107) SB 0 (11) 9(A) , No pain 13:23:56 62 10 98 22.6 129/72(104) SB 0 (11) 9(A) , No pain 13:28:17 58 12 97 12 122/52(107) SB 0 (11) 9(A) , No pain 13:31:47 64 16 98 40.7 137/76(115) Paced 0 (11) 10(A) , No pain 13:35:59 66 10 94 21.8 135/84(101) Paced 0 (11) 10(A) , No pain 13:40:11 59 19 94 19.5 137/81(119) Paced 0 (11) 10(A) , No pain Medications Time Medication Route Dose Verified Delivered Reason Notes Effecti veness by by 12:55:55 0.9% NaCl I.V. 100 Terrance Dayana used for ml/hr Yoan Scott procedure MD MONTEZ 12:56:02 Oxygen etCO2 2 Terrance Dayana used for [facility]al l[facility] MONTEZ 12:56:14 Lidocaine added 20ml Lui Poe for local 1% to vial Mary Stiles MD anesthetic field x 2 12:56:28 Ancef I.V.P.B 1 g Lui Poe used for (1Gm/50ml Mary Stiles MD procedure NS) 12:58:28 Ancef Topical 1 g Lui Cisseian used for Irrigation Mary Stiles MD procedure (1gm/500ml NS) 13:04:27 Versed I.V. 2 mg Terrance Castilloyla for [facility] sedation MD MONTEZ 13:04:33 Fentanyl I.V. 50 Terrance De La Rosaa for mcg [facility] sedation MD MONTEZ 13:10:35 Versed I.V. 2 mg Terrance De La Rosaa for [facility] sedation MD MONTEZ 13:10:51 Fentanyl I.V. 50 Terrance Castilloyla for mcg [facility] Chavez sedation RN 13:15:12 Fentanyl I.V. 50 Terrance Castilloyla for mcg [facility] Terry Chavez sedation RN 13:15:55 Versed I.V. 2 mg Terrance Castilloyla for [facility] Terry escobar MD, RN Procedure Log Time Note 12:25:30 Informed consent obtained and on chart 12:26:03 Procedure Status PPM/ Gen Change/ Lead Revision/ Temp. 12:26:05 Time tracking: Regular hours (M-F 7:00 - 5:00) 12:26:08 Plan of Care:Hemodynamics will remain stable., Cardiac rhythm will remain stable., Comfort level will be maintained., Respiratory function will remain adequate., Patient/ family verbilizes understanding of procedure., Procedure tolerated without complication., Recovers from procedure without complications.. 12:33:20 María Elena Schneider RT(R) sent for patient. Start room use. 12:39:16 Patient allergic to No known allergies 12:39:30 Arrival Date: 03/08/2020 12:00:00 AM 12:39:36 Patient Height : 77.17 inches 12:42:35 Patient Weight : 326.29 lbs 12:42:54 Patient received from CVICU to CCL 3 Alert and oriented. Tansferred to table in Supine position. 12:42:56 Warm blankets applied, and waqas hugger turned on for patient comfort. 12:42:57 Correct patient and procedure confirmed by team. 12:42:59 ECG and BP/O2 sat monitors applied to patient. 12:46:51 Vital chart was started 12:46:52 Baseline sample Acquired. 12:47:01 Rhythm: sinus bradycardia 12:47:04 Full Disclosure recording started 12:47:05 - 12:47:13 H&P Date Dictated: 03/08/2020 H&P Addendum completed by physician on day of procedure. (MUST COMPLETE FOR ALL OUTPATIENTS), New H&P dictated by physician.. 12:47:15 Pre-procedure instructions explained to patient. 12:47:16 Pre-op teaching completed and patient verbalized understanding. 12:47:26 Family unavailable. 12:47:30 Patient NPO since Midnight. 12:47:35 Was the patient premedicated? Yes 12:47:41 Is patient on blood thinner?No 12:47:45 Patient diabetic? No. 12:47:48 ----Pre-sedation anethsthesia assessment.---- 12:47:52 Previous problem with sedation/anesthesia? No ? 12:47:54 Snore? Yes 12:47:56 Sleep apnea? Yes 12:47:59 Deviated septum? Unknown 12:48:02 Opens mouth fully? Yes 12:48:05 Sticks out tongue? Yes 12:48:14 Airway obstruction? Yes SLEEP APNEA 12:48:19 Dentures? No ? 12:48:48 IV patent on arrival in left forearm with 0.9% NaCl at [facility]. 12:55:00 Lab Result : BUN 18 mg/dl 12:55:00 Lab Result : CK-MB 1.8 ng/ml 12:55:00 Lab Result : Creatinine 1 mg/dl 12:55:00 Lab Result : eGFR NONAFRICAN 81 ml/min 12:55:00 Lab Result : Hemoglobin 14.4 g/dl 12:55:00 Lab Result : Hematocrit 45.6 % 12:55:07 Lab results completed and on chart. 12:55:19 Left chest area was prepped with chlora-prep and draped in sterile fashion 12:55:21 Alarms reviewed by R. N. 12:55:22 Sharps counted by scrub and verified by R.N. 12:55:36 Use device set MARY PPM 12:55:41 2-0 Ticron Multipack ([id number]) opened to sterile field. 12:55:42 3-0 Vicryl Single Pack [id number] opened to sterile field. 12:55:42 5-0 Monocryl PS2 [id number] opened to sterile field. 12:55:43 Cautery Tip Clinic Clerk opened to sterile field. 12:55:44 Cautery Pushbutton Pencil opened to sterile field. 12:55:45 Mepilex Dressing (559262) opened to sterile field. 12:55:54 Immobilizer Extra Large opened to sterile field. 12:55:55 0.9% NaCl 100 ml/hr I.V. was administered by Dayana Chavez RN; used for procedure; Verbal order read back and verified. 12:56:02 Oxygen 2 l/min etCO2 Nasal cannula was administered by Dayana Chavez RN ; used for procedure; Verbal order read back and verified. 12:56:14 Lidocaine 1% 20ml vial x 2 added to field was administered by Lui Stiles MD; for local anesthetic; Verbal order read back and verified. 12:56:28 Ancef (1Gm/50ml NS) 1 g I.V.P.B was administered by Lui Stiles MD ; used for procedure; Verbal order read back and verified. 12:58:04 Medtronic volunteer patient representative TRANG WHITNEY present for procedure. 12:58:28 Ancef Irrigation (1gm/500ml NS) 1 g Topical was administered by Lui Stiles MD; used for procedure; Verbal order read back and verified. 12:58:29 Pre sharps counted by scrub and verified by RN: Sutures: 7; Sponges: 5; Stick needles: 2; Skin needles: 2; Blade: 1; Cautery: 1 12:58:36 Grounding pad site Left thigh. 12:58:38 Grounding pad site free from injury. 12:58:54 Physician arrived 12:59:11 --------ALL STOP TIME OUT------ 12:59:12 Final Timeout: patient, procedure, and site verified with staff and physician. All members of the team are in agreement. 12:59:21 Left chest site verified by team. 12:59:29 Fire Safety Assessment: A--An alcohol-based skin anteseptic being used preoperatively., B--The operative or invasive procedure is being performed above the xiphoid process or in the oropharynx., C--Open oxygen or nitrous oxide is being used., E--There are other possible contributors. 12:59:37 Sedation plan: IV Moderate Sedation Medication:Versed, Fentanyl 13:04:27 Versed 2 mg I.V. was administered by Dayana Chavez RN; for sedation; Verbal order read back and verified. 13:04:33 Fentanyl 50 mcg I.V. was administered by Dayana Chavez RN; for sedation ; Verbal order read back and verified. 13:07:35 Procedure started. 13:09:32 Lidocaine 1% was administered to left subclavicular area by Lui Stiles MD . 13:10:35 Versed 2 mg I.V. was administered by Dayana Chavez RN; for sedation; Verbal order read back and verified. 13:10:51 Fentanyl 50 mcg I.V. was administered by Dayana Chavez RN; for sedation ; Verbal order read back and verified. 13:11:07 Incision made to left subclavicular area. 13:12:26 Generator pocket made/opened. 13:13:53 Left subclavian vein accessed with 7Fr Peel Away Sheath. 13:13:59 Left subclavian vein accessed with 7Fr Peel Away Sheath. 13:14:24 Medtronic 4574-53 PPM Lead opened to sterile field. 13:14:33 Medtronic 4074-58 PPM Lead opened to sterile field. 13:14:[address] Generator [id number] opened to sterile field. 13:15:01 Ventricular lead inserted and advanced. 13:15:05 Atrial lead inserted and advanced. 13:15:12 Fentanyl 50 mcg I.V. was administered by Dayana Chavez RN; for sedation ; Verbal order read back and verified. 13:15:55 Versed 2 mg I.V. was administered by Dayana Chavez RN; for sedation; Verbal order read back and verified. 13:17:28 Ventricular lead positioned. 13:20:51 Ventricular lead tested. 13:24:50 Atrial lead positioned. 13:24:58 Atrial lead tested. 13:26:53 Peel-a-way sheath was split and removed. 13:26:54 Peel-a-way sheath was split and removed. 13:27:11 PPM Dual was attached to lead(s) and inserted into pocket. 13:29:10 PPM Dual was inserted subcutaneously to left chest. 13:29:37 PPM Dual was interrogated. 13:30:21 Device pocket was irrigated with Ancef. 13:31:22 Parameters-- Generator: Mode: AAIR/DDDR. Lower Rate: 60bpm. Upper Rate: 130bpm. 13:31:51 Parameters--Atrial P/R Wave: 1.8mV. Current: 1.2mA; Threshold: 0.7V; Impedence: 631OHMS. 13:31:54 Parameters--Ventricular P/R Wave: 5.6mV. Current: 0.5mA; Threshold: 0.2V; Impedence: 1126OHMS. 13:33:03 Atrial lead attachment was completed with 2-0 ticron. 13:33:11 Ventricular lead attachment was completed with 2-0 ticron. 13:33:46 Generator was sutured in place with 2-0 ticron. 13:33:52 Subcutaneous closure was completed with 3-0 vicryl plus. 13:34:07 Skin closure was completed with 5-0 monocryl. 13:36:17 Post sharps counted by scrub and verified by RN: Sutures: 7; Sponges: 5 ; Stick needles: 2; Skin needles: 2; Blade: 1; Cautery: 1 13:36:27 Procedure ended.(Physican Out) 13:36:43 Fluoroscopy time 05.80 minutes. 13:36:52 Fluoroscopy dose: 474.17 mGy 13:36:52 Flurop Dose total: 474.17 13:37:07 Dose Area Product 6053.42 mGy/cm. 13:37:29 Sharps counted by scrub and verified by R.N. 13:37:32 Insertion/operative site no bleeding no hematoma. 13:38:35 Post Chest area:stable 13:38:47 Post-procedure physical assessment completed. ASA score P 2 - A patient with mild systemic disease as per Terrance Milton MD. 13:38:52 Post procedure rhythm: paced 13:39:17 Estimated blood loss: 5 ml 13:39:18 Post procedure instruction explained to patient.Patient verbalizes understanding. 13:39:21 Patient needs reinforcement of post procedure teaching. 13:40:21 Procedure type changed to Cath procedure, Diagnostic procedure, PPM/ICD , PPM Dual Implant, Sedation Charges, Moderate Sedation up to 30 minutes 13:40:50 Procedure and supply charges have been captured, reviewed, submitted an d are correct. 13:41:22 Lt Chest incision was dressed with Mepilex dressing. 13:41:42 Procedure Complication : No complications 13:41:48 Vital chart was stopped 13:41:54 Operative report dictated upon procedure completion. 13:42:01 See physician's report for complete and final results. 13:42:04 Report given to CVICU. 13:42:10 Patient transfered to CVICU with Bed. 13:42:14 Procedure ended. 13:42:14 Full Disclosure recording stopped 13:42:18 End room use (Document Last) Device Usage Item Name Manufacture Quantity Catalog Hospital Part Current Minima l Lot# / Number Charge Number Stock Stock Serial# Code 2-0 Ticron Ethicon 1 [id number] 67879 [id number] 5 Multipack [id number]) 3-0 Vicryl Ethicon 1 [id number] 563571 [id number] 5 Single Pack [id number] 5-0 Monocryl Ethicon 1 [id number] 860648 815256 767815 5 PS2 Y495G Cautery Tip Microtek 1 [id number] 670082 442076 752341 5 Clinic Clerk [employer] Cautery Microtek 1 [id number] 39385 746771 5 Pushbutton [employer] Inc[employer] Pencil Mepilex Cardinal 1 842998 683772 316050 675094 5 Dressing Health ([id number]) Immobilizer Cardinal 1 [id number] 891196 317817 308559 5 Extra Large Health Medtronic Medtronic 1 4574-53 692377 460911 437700 5 [id number] 4574-53 PPM 10-22-2021 Lead Medtronic Medtronic 1 4074-58 627640 181032 923094 5 [id number] 4074-58 PPM 08-26-2020 Lead Medtronic Medtronic 1 [id number] 408418 [id number] 5 [id number] LUTHER XT 06-06-2021 Generator [id number] Signature Audit Paige Stage Time Signature Unsigned Intra-Procedure 03/08/2020 Hermila 1:42:40 PM Maya RT(R) (CV) Intra-Procedure 03/08/2020 Dayana Chavez 1:43:47 PM RN Intra-Procedure 03/08/2020 Terrance Rojas 1:44:36 PM Terry [facility] [address] [place] [address]
--- NOTE | ~2020-03-07 | OP ---
PATIENT NAME: SHAWN DUGAN MEDICAL RECORD: [id number] :56 LOCATION:D.CVI D.CV01 ADMISSION DATE:03/07/20 SURGEON: EVE HERNANDEZ MD DATE OF OPERATION: 03/08/2020 PREOPERATIVE DIAGNOSIS: Sick sinus syndrome with pauses. POSTOPERATIVE DIAGNOSIS: Sick sinus syndrome with pauses. PROCEDURE: 1. Left subclavian vein dual lead pacemaker placement. 2. Fluoroscopic interpretation. SURGEON: Eve Hernandez MD CO-SURGEON: Terrance Sparrow MD REPORT OF PROCEDURE: The patient's left chest was prepped and draped in sterile fashion. A 20 mL of 1% lidocaine with epinephrine was infused into the surrounding tissues. A skin incision was made on the left superior lateral chest and a subcutaneous pouch was made over the pectoral fascia. Needle was used to cannulate the left subclavian vein times 2 and guidewires were advanced with ease. Fluoro was used to note that the wires were in good position in the venous system. Dilator trocar devices were placed over the wires and the wires and dilators were removed. The leads were advanced through the trocars until they rested in the superior vena cava. Dr. Sparrow then positioned the leads appropriately in the atrium and ventricle. Once the leads were noted to be in good positioning and functioning appropriately, then they were sutured into place with 2-0 Ti-Cron. These were then affixed to the pacemaker, which was placed into the subcutaneous pouch and sutured to the pectoral fascia with a single interrupted 2-0 Ti-Cron. We irrigated out the wound with antibiotic solution. Subcutaneous tissues were reapproximated with interrupted 3-0 Vicryl and skin was closed with running subcutaneous 5-0 Monocryl. COMPLICATIONS: None. CONDITION: Stable. ANESTHESIA: Local MAC. BLOOD LOSS: Minimal. TRANSINT:[id number] Voice Confirmation ID: [id number] DOCUMENT ID: [id number] EVE HERNANDEZ MD CC: [id number] DICTATION DATE: 03/08/20 1339 RF TEST TECHNICIAN: 03/08/20 2343 ADM IN [facility] [address] [place] [address]
[2020-03-07 19:25] LABS: CALC OSMOLALITY 281 mosm/kg (275-300); CALCIUM 8.5 mg/dL (8.5-10.1); CHLORIDE - SERUM 104 mmol/L (98-107); GLUCOSE 118 mg/dL (74-106); POTASSIUM - SERUM 4.2 mmol/L (3.5-5.1); SODIUM 139 mmol/L (136-145); UREA NITROGEN 21 mg/dL (7-18); eGFR NON AFRICAN AMERICAN 81 mL/min (90-120)
[2020-03-07 19:27] LABS: APTT 28.6 SECONDS (22.8-39.4); BASOPHILS 0.6 % (0-2); EOSINOPHILS 1.8 % (0-7); HEMATOCRIT 45.3 % (42.0-54.0); HEMOGLOBIN 14.5 g/dL (13.5-17.5); IMMATURE GRANULOCYTES 0.3 % (0-5); INR 0.94 (0.85-1.17); LYMPHOCYTES 32.8 % (15-50); MCH 28.5 pg (26.0-34.0); MCV 89.2 fL (80.0-100.0); MEAN PLATELET VOLUME 10.7 fL (7.4-10.4); MONOCYTES 9.1 % (2-11); NEUTROPHILS 55.4 % (40-80); PLATELET COUNT 235 10x3/uL (130-400); PROTIME 12.5 SECONDS (11.6-15.0); RBC 5.08 10x6/uL (4.20-6.10); RDW 14.1 % (11.5-14.5); WBC 7.1 10x3/uL (4.8-10.8)
--- NOTE | 2020-03-07 19:29 | NUR ---
PT C/O WEAKNESS, DRY COUGH, AND SYNCOPE TODAY, PT STATES THAT HE HAS NOT BEEN FEELING GOOD AND HAD A DRY COUGH AND PASSED OUT TODAY, PT IS AAOX4 AT THIS TIME, GROSS NEURO INTACT
[2020-03-07 19:41] LABS: ALBUMIN 3.4 g/dL (3.4-5.0); ALKALINE PHOSPHATASE 93 U/L (30-120); ALT (SGPT) 24 U/L (10-68); BILIRUBIN - TOTAL 0.19 mg/dL (0.2-1.3); CKMB 2.1 U/L (0.0-3.6); CREATINE KINASE 94 UL (21-232); MAGNESIUM - SERUM 2.2 mg/dL (1.8-2.4); PROTEIN - SERUM 6.8 g/dL (6.4-8.2)
[2020-03-07 19:43] LABS: TROPONIN-I < 0.017 ng/mL (0.000-0.060)
--- NOTE | 2020-03-07 22:15 | NUR ---
PT RECIEVED VIA STRETCHER FROM ER, A/OX4, LUNGS CLEAR, LEFT FA PIV INTACT WITH NS @ 125 CC/HR, PT AMBULATED TO BATHROOM WITH STANDBY ASSIST, ADMISSION ASSESSMENT COMPLETED, DR LI PRESENT TO SEE PT
[2020-03-08] VITALS (31 sets, daily range): BP systolic 97–156; BP diastolic 36–99; Ht 195.6 cm; Wt 149.8 kg
--- NOTE | 2020-03-08 | NUR ---
PT RESTING QUIETLY WITH EYES CLOSED, VITALS STABLE
--- NOTE | 2020-03-08 02:00 | NUR ---
PT SLEEPING QUIETLY, HR BRADYCARDIA IN 50'S, PT ASYMPTOMATIC, WILL CONT TO MONITOR
[2020-03-08 02:03] LABS: CKMB 1.8 U/L (0.0-3.6); CREATINE KINASE 82 UL (21-232)
[2020-03-08 02:07] LABS: TROPONIN-I < 0.017 ng/mL (0.000-0.060)
[2020-03-08 05:37] LABS: BASOPHILS 0.3 % (0-2); EOSINOPHILS 2.5 % (0-7); HEMATOCRIT 45.6 % (42.0-54.0); HEMOGLOBIN 14.4 g/dL (13.5-17.5); IMMATURE GRANULOCYTES 0.3 % (0-5); LYMPHOCYTES 34.3 % (15-50); MCH 28.3 pg (26.0-34.0); MCHC 31.6 g/dL (31.0-37.0); MCV 89.8 fL (80.0-100.0); MEAN PLATELET VOLUME 10.7 fL (7.4-10.4); MONOCYTES 9.9 % (2-11); NEUTROPHILS 52.7 % (40-80); PLATELET COUNT 212 10x3/uL (130-400); RBC 5.08 10x6/uL (4.20-6.10); RDW 14.4 % (11.5-14.5); WBC 6.1 10x3/uL (4.8-10.8)
[2020-03-08 05:44] LABS: ALBUMIN 3.2 g/dL (3.4-5.0); ALKALINE PHOSPHATASE 86 U/L (30-120); ALT (SGPT) 23 U/L (10-68); BILIRUBIN - TOTAL 0.27 mg/dL (0.2-1.3); CALC OSMOLALITY 282 mosm/kg (275-300); CALCIUM 8.3 mg/dL (8.5-10.1); CARBON DIOXIDE 29.7 mmol/L (21.0-32.0); CHLORIDE - SERUM 106 mmol/L (98-107); GLUCOSE 96 mg/dL (74-106); POTASSIUM - SERUM 4.3 mmol/L (3.5-5.1); PROTEIN - SERUM 6.5 g/dL (6.4-8.2); SODIUM 141 mmol/L (136-145); UREA NITROGEN 18 mg/dL (7-18); eGFR NON AFRICAN AMERICAN 81 mL/min (90-120)
--- NOTE | 2020-03-08 06:28 | NUR ---
PT AROUSES EASILY, NO C/O @ THIS TIME, VITALS STABLE
[2020-03-08 08:02] LABS: CREATINE KINASE 75 UL (21-232)
[2020-03-08 08:03] LABS: TROPONIN-I < 0.017 ng/mL (0.000-0.060)
--- NOTE | 2020-03-08 09:00 | NUR ---
0700 PT RECIEVED ALERT AND ORIENTED DENIES PAIN HR NSR/SINUS CHUY WITH PAUSES, BP STABLE [address] MAHER 0900 PT ATE SMALL AMOUNT OF ICE CHIPS OKAYED BY DR MAHER AND IS ABLE TO REPOSITION SELF, USES URINAL INDEPENDENTLY
--- NOTE | 2020-03-08 12:39 | NUR ---
PT TO DRYWALL FOREMAN WITH DRYWALL FOREMAN STAFF
[2020-03-08 15:08] LABS: HEMOGLOBIN 14.6 g/dL (13.5-17.5); MCHC 31.1 g/dL (31.0-37.0); MEAN PLATELET VOLUME 11.1 fL (7.4-10.4); RBC 5.22 10x6/uL (4.20-6.10); RDW 14.5 % (11.5-14.5); WBC 5.9 10x3/uL (4.8-10.8)
[2020-03-08 15:17] LABS: ANION GAP 11.3 mmol/L (8-16); CALCIUM 8.2 mg/dL (8.5-10.1); CREATININE - SERUM 1.1 mg/dL (0.6-1.3); POTASSIUM - SERUM 4.3 mmol/L (3.5-5.1)
[2020-03-08 15:23] LABS: APTT 29.8 SECONDS (22.8-39.4); INR 1.01 (0.85-1.17); PROTIME 13.3 SECONDS (11.6-15.0)
--- NOTE | 2020-03-08 17:12 | NUR ---
1400 PT RETURNED FROM TRACER LATHE SET UP OPERATOR, SLING IN PLACE, PT ALERT AND ORIENTED, DISCUSSED TO NOT LIFT LUE AND TO KEEP IN SLING TO KEEP PPM LEADS IN PLACE FOR HEALING, PT STATES UNDERSTANDING AND DENIES ALL NEEDS 1500 PT ATE 100% LUNCH TRAY 1700 PT ATE 100% DINNER TRAY, DENIES ALL NEEDS AND ABLE TO REPOSITION SELF
--- NOTE | 2020-03-08 19:15 | NUR ---
PT A/OX4, LUNGS CLEAR, DRSG CDI OVER LEFT CHEST INCISION SITE, SLING TO LEFT ARM FOR IMMOBILIZATION, LEFT FA PIV INTACT WITH NS @ 125 CC/HR, URINAL IN REACH AT BEDSIDE, NO DISTRESS NOTED
[2020-03-09] VITALS (14 sets, daily range): BP systolic 122–163; BP diastolic 58–95
--- NOTE | 2020-03-09 01:00 | NUR ---
PT RESTING QUIETLY WITH EYES CLOSED, VITALS STABLE
--- NOTE | 2020-03-09 03:18 | NUR ---
PT SLEEPING WITH NO DISTRESS, SLING IN PLACE TO LEFT ARM, WILL CONT TO MONITOR
--- NOTE | 2020-03-09 05:00 | NUR ---
pt bathed per staff, up to chair this am, vitals stable, no c/o
--- NOTE | 2020-03-09 09:15 | NUR ---
0700 PT RECIEVED UP IN CHAIR ALERT AND ORIENTED VSS PPM PACING APPROPRIATELY ON MONITOR, DENIES ALL NEEDS, SLING IN PLACE 0800 ATE 100% BREAKFAST 0900 ASSISTED TO BATHROOM, HAD BM AND ASSISTED BACK TO BED
--- NOTE | 2020-03-09 11:22 | NUR ---
Nutrition Follow-up: S/p pacemaker placement yesterday. Good PO intake; ate 100% this AM. Diet: Cardiac PO intake: 100% x 3 meals Wt: 329.5# (03/09); 326.2# (03/07) Labs reviewed Meds noted: NS @ 125 -Monitor wt. -RD following.
--- NOTE | 2020-03-09 14:28 | MORECARE ---
CASE MANAGEMENT DISCHARGE SUMMARY PATIENT: SHAWN DUGAN UNIT: [id number] ADM DATE: 03/07/20 AGE: 59 : 56 SEX: M ROOM/BED: D.CV01 AUTHOR: GEORGE,DOC PHYSICIAN: REFERRING PHYSICIAN: MADELIN LI MD DATE OF SERVICE: 03/09/20 Discharge Plan Patient Name: SHAWN DUGAN Facility: [facility]:[place] : 1960 Planned Disposition: Home Health Service Anticipated Discharge Date: 03/09/20 Discharge Date: Expected LOS: 2 Initial Reviewer: [email or web address] Initial Review Date: 03/09/2020 Generated: 03/09/20 3:28 pm Comments DCP- Discharge Planning Updated by [id number]: Maile Ashraf on 03/09/20 1:[address] Patient Name: SHAWN DUGAN Admission Status: ER Accout number: [id number] Admission Date: 03-07-2020 : 1960 Admission Diagnosis: Attending: JH Current LOS: 2 Anticipated DC Date: Planned Disposition: Home with Home Health Primary Insurance: MEDICAID [place] Discharge Planning Comments: CM met with patient to discuss discharge planning needs. Patient states he wants home health services since he lives alone and has his arm in a brace. Patient signed patient choice form for "Any Home Health". Patient states his PCP is Rani Rosario at [facility] [employer] States he has a ride home. Denies any other discharge planning needs at this time. SHANIQUE called [facility] [employer] to obtain order for Home Health. Spoke with Dayana. Informed her of patient's request for Home Health. Dayana stated that Rani would want to see the patient prior to ordering home health. Appointment scheduled for tomorrow at 15:00. After Rani sees patient tomorrow her office will order and arrange home health services. CM informed patient and nurse, Sveta of MD appointment tomorrow at 15:00 and that clinic will order and set up Home Health services after tomorrow's appointment. Patient voiced understanding and satisfaction with discharge plan. CM will continue to follow and assist as needed with DCP needs. System Operation Superintendent: Maile Ashraf DCPIA - Discharge Planning Initial Assessment Updated by [email or web address]: Maile Ashraf on 03/09/20 2:15 pm * Is the patient Alert and Oriented? Yes * How many steps to enter\\exit or inside your home? elevator * PCP Rani Rosario at [facility]: [phone] * Pharmacy [facility] * Preadmission Environment Home Alone * ADLs Partial Dependent * Partial ADLs (Assistance needed) Bathing Dressing * Equipment Other * Other Equipment Sling to left arm * List name and contact numbers for known caregivers / representatives who currently or will assist patient after discharge: Sasha Matthews, * Verbal permission to speak to the caregivers and representatives has been obtained from the patient. N/A * Community resources currently utilized None * Additional services required to return to the preadmission environment? Yes * Can the patient safely return to the preadmission environment? Yes * Has this patient been hospitalized within the prior 30 days at any hospital? No Coverage Notice Reviewer: [email or web address] - Maile Ashraf Notice Issued Date-Time: 03/09/2020 14:24 Notice Type: Patient Choice Letter Notice Delivered To: Patient Relationship to Patient: Self Color Checker Roving Or Yarn Name: Delivery Method: HAND - Hand Delivered Ramona Days: Prior Verbal Notification: Recipient Understood Notice: Yes Recipient Signature: Yes Med Rec Note Co-signed by Attending: Coverage Notice Comment: Patient Name: SHAWN DUGAN Page [id number] at 1428 All edits/amendments must be made on the electronic document DICTATION DATE: 03/09/201427 OIL AND GAS EXPLORATION TECHNICIAN: EDSON 03/09/201427 RPT#: [id number] DC DATE: STATUS: ADM IN [place] [id number] [place] [address] END OF REPORT
--- NOTE | 2020-03-09 14:59 | NUR ---
1200 PT ATE 100% LUNCH, DENIES ALL NEEDS, ABLE TO REPOSITION SELF 1430 SPOKE WITH HOT PRESS OPERATOR WHO SPOKE WITH PT, PT SEES [facility] FOR PCP AND HOT PRESS OPERATOR SET UP APPT WITH THEM FOR TOMORROW, PT AWARE AND STATES UNDERSTANDING, REVIEWED PPM CARE AND DC INSTRUCTIONS AND DENIES ALL QUESTIONS
--- NOTE | 2020-03-09 16:24 | NUR ---
1545 PT DCD WITH FRIEND
--- NOTE | 2020-03-09 22:41 | MORECARE ---
CASE MANAGEMENT DISCHARGE SUMMARY PATIENT: SHAWN DUGAN UNIT: [id number] ADM DATE: 03/07/20 AGE: 59 : 56 SEX: M ROOM/BED: D.01 AUTHOR: GEORGE,DOC PHYSICIAN: REFERRING PHYSICIAN: MADELIN LI MD DATE OF SERVICE: 03/09/20 Discharge Plan Patient Name: SHAWN DUGAN Facility: [facility]:[place] : 1960 Planned Disposition: Home Health Service Anticipated Discharge Date: 03/09/20 Discharge Date: 03/09/2020 Expected LOS: 2 Initial Reviewer: [email or web address] Initial Review Date: 03/09/2020 Generated: 03/09/20 11:40 pm Comments DCP- Discharge Planning Updated by [email or web address]: Maile Ashraf on 03/09/20 1:[address] Patient Name: SHAWN DUGAN Admission Status: ER Accout number: [id number] Admission Date: 03-07-2020 : 1960 Admission Diagnosis: Attending: JH Current LOS: 2 Anticipated DC Date: Planned Disposition: Home with Home Health Primary Insurance: MEDICAID [place] Discharge Planning Comments: CM met with patient to discuss discharge planning needs. Patient states he wants home health services since he lives alone and has his arm in a brace. Patient signed patient choice form for "Any Home Health". Patient states his PCP is Rani Rosario at [facility]. States he has a ride home. Denies any other discharge planning needs at this time. SHANIQUE called [facility] to obtain order for Home Health. Spoke with Dayana. Informed her of patient's request for Home Health. Dayana stated that Rani would want to see the patient prior to ordering home health. Appointment scheduled for tomorrow at 15:00. After Rani sees patient tomorrow her office will order and arrange home health services. CM informed patient and nurse, Sveta of MD appointment tomorrow at 15:00 and that clinic will order and set up Home Health services after tomorrow's appointment. Patient voiced understanding and satisfaction with discharge plan. CM will continue to follow and assist as needed with DCP needs. Skin Fitter: Maile Ashraf DCPIA - Discharge Planning Initial Assessment Updated by [email or web address]: Maile Ashraf on 03/09/20 2:15 pm * Is the patient Alert and Oriented? Yes * How many steps to enter\\exit or inside your home? elevator * PCP Rani Rosario at [facility]: [phone] * Pharmacy [facility] * Preadmission Environment Home Alone * ADLs Partial Dependent * Partial ADLs (Assistance needed) Bathing Dressing * Equipment Other * Other Equipment Sling to left arm * List name and contact numbers for known caregivers / representatives who currently or will assist patient after discharge: Sasha Matthews, * Verbal permission to speak to the caregivers and representatives has been obtained from the patient. N/A * Community resources currently utilized None * Additional services required to return to the preadmission environment? Yes * Can the patient safely return to the preadmission environment? Yes * Has this patient been hospitalized within the prior 30 days at any hospital? No Coverage Notice Reviewer: [id number] - Maile Ashraf Notice Issued Date-Time: 03/09/2020 14:24 Notice Type: Patient Choice Letter Notice Delivered To: Patient Relationship to Patient: Self Mat Roller Name: Delivery Method: HAND - Hand Delivered Ramona Days: Prior Verbal Notification: Recipient Understood Notice: Yes Recipient Signature: Yes Med Rec Note Co-signed by Attending: Coverage Notice Comment: "Any Home Health" Last DP export: 03/09/20 1:28 p Patient Name: SHAWN DUGAN Page [phone] at 2241 All edits/amendments must be made on the electronic document DICTATION DATE: 03/09/202239 SNOWBOARD DESIGNER: EDSON 03/09/202239 RPT#: [id number] DC DATE:03/09/20 STATUS: DIS IN [facility] [address] [place] [address] END OF REPORT
== END 2020-03-09 15:45 | disposition home or self-care (01) | DRG 243 ==
LOC: D.ER 18:48 → D.CVICU 21:05
PROVIDERS: Family Medicine; Internal Medicine Interventional Cardiology; ADMIT Family Medicine; ATTEND Family Medicine
PROC: 02H63JZ Insertion of Pacemaker Lead into Right Atrium, Percutaneous Approach (ICD-10-PCS; 2020-03-08)
PROC: 02HK3JZ Insertion of Pacemaker Lead into Right Ventricle, Percutaneous Approach (ICD-10-PCS; 2020-03-08)
PROC: 0JH606Z Insertion of Pacemaker, Dual Chamber into Chest Subcutaneous Tissue and Fascia, Open Approach (ICD-10-PCS; principal; 2020-03-08 12:30)
DX: I49.5 Sick sinus syndrome (principal); F17.203 Nicotine dependence unspecified, with withdrawal; G62.9 Polyneuropathy, unspecified; F32.9 Major depressive disorder, single episode, unspecified; E66.9 Obesity, unspecified; J44.9 Chronic obstructive pulmonary disease, unspecified; I95.9 Hypotension, unspecified; R55 Syncope and collapse; I25.10 Atherosclerotic heart disease of native coronary artery without angina pectoris; R42 Dizziness and giddiness

== ENCOUNTER 2020-06-02 18:26 | Emergency (ER) | payer MEDICAID ==
[~2020-06-02] VITALS: Ht 195.6 cm; Wt 136.4 kg
[2020-06-02 18:55] VITALS: Ht 195.6 cm; Wt 136.4 kg
[2020-06-02 19:24] LABS: BASOPHILS 0.4 % (0-2); EOSINOPHILS 1.5 % (0-7); HEMATOCRIT 47.8 % (42.0-54.0); HEMOGLOBIN 15.4 g/dL (13.5-17.5); IMMATURE GRANULOCYTES 0.4 % (0-5); LYMPHOCYTES 28.3 % (15-50); MCH 28.4 pg (26.0-34.0); MCHC 32.2 g/dL (31.0-37.0); MONOCYTES 7.8 % (2-11); NEUTROPHILS 61.6 % (40-80); PLATELET COUNT 224 10x3/uL (130-400); RBC 5.43 10x6/uL (4.20-6.10); RDW 14.1 % (11.5-14.5); WBC 8.2 10x3/uL (4.8-10.8)
[2020-06-02 19:31] LABS: CALC OSMOLALITY 278 mosm/kg (275-300); CALCIUM 8.3 mg/dL (8.5-10.1); CARBON DIOXIDE 26.9 mmol/L (21.0-32.0); CHLORIDE - SERUM 104 mmol/L (98-107); CREATININE - SERUM 0.8 mg/dL (0.6-1.3); POTASSIUM - SERUM 4.1 mmol/L (3.5-5.1); SODIUM 140 mmol/L (136-145); UREA NITROGEN 13 mg/dL (7-18); eGFR NON AFRICAN AMERICAN > 90 mL/min (90-120)
[2020-06-02 19:35] LABS: GLUCOSE 95 mg/dL (74-106)
[2020-06-02 19:37] LABS: ALBUMIN 3.5 g/dL (3.4-5.0); ALKALINE PHOSPHATASE 103 U/L (30-120); ALT (SGPT) 25 U/L (10-68); BILIRUBIN - TOTAL 0.19 mg/dL (0.2-1.3); MAGNESIUM - SERUM 2.2 mg/dL (1.8-2.4); PROTEIN - SERUM 7.2 g/dL (6.4-8.2)
--- NOTE | 2020-06-02 20:06 | NUR ---
DR MARRERO NOTIFIED AND SITTER ORDERED. SITTER AT BEDSIDE. NOTIFIED CHARGE NURSE AND ATTENDING IN REGARDS TO ASSESSMENT FINGINGS. RESOURCES GIVEN TO PT AND SAFETY PLAN INITIATED.
[2020-06-02 21:47] LABS: UDS - AMPHET POSITIVE QUAL (NEGATIVE); UDS - BARB NEGATIVE QUAL (NEGATIVE); UDS - BENZO NEGATIVE QUAL (NEGATIVE); UDS - COCAINE NEGATIVE QUAL (NEGATIVE); UDS - OPIATE NEGATIVE QUAL (NEGATIVE); UDS - PCP NEGATIVE QUAL (NEGATIVE); UDS - THC NEGATIVE QUAL (NEGATIVE)
[2020-06-02 21:55] LABS: BILIRUBIN NEGATIVE (NEGATIVE); KETONE NEGATIVE (NEGATIVE); NITRITE NEGATIVE (NEGATIVE); UROBILINOGEN NORMAL mg/dL (< 2)
[2020-06-02 22:00] LABS: WHITE CELLS - URINE 0-5 /HPF (0-1)
[2020-06-02 22:01] LABS: BACTERIA FEW /HPF (NONE SEEN); EPITHELIAL CELLS 0-5 /hpf (0-5)
[2020-06-03 01:45] VITALS: BP 138/63
== END 2020-06-03 01:45 ==
LOC: D.ER 18:26
DX: R45.851 Suicidal ideations (principal); F32.9 Major depressive disorder, single episode, unspecified; F19.10 Other psychoactive substance abuse, uncomplicated; J44.9 Chronic obstructive pulmonary disease, unspecified; I50.9 Heart failure, unspecified; G62.9 Polyneuropathy, unspecified; Z72.0 Tobacco use

== ENCOUNTER 2020-07-07 15:40 | Emergency (ER) | payer MEDICAID ==
[~2020-07-07] VITALS: Ht 195.6 cm; Wt 113.6 kg
[2020-07-07 16:03] VITALS: Ht 195.6 cm; Wt 113.6 kg
[2020-07-07 16:18] LABS: BILIRUBIN NEGATIVE (NEGATIVE); KETONE NEGATIVE (NEGATIVE); NITRITE NEGATIVE (NEGATIVE); UROBILINOGEN NORMAL mg/dL (< 2)
[2020-07-07 16:24] LABS: UDS - AMPHET NEGATIVE QUAL (NEGATIVE); UDS - BARB NEGATIVE QUAL (NEGATIVE); UDS - BENZO NEGATIVE QUAL (NEGATIVE); UDS - COCAINE NEGATIVE QUAL (NEGATIVE); UDS - OPIATE NEGATIVE QUAL (NEGATIVE); UDS - PCP NEGATIVE QUAL (NEGATIVE); UDS - THC NEGATIVE QUAL (NEGATIVE)
[2020-07-07 16:34] LABS: ANION GAP 14.9 mmol/L (8-16); CALCIUM 8.6 mg/dL (8.5-10.1); CARBON DIOXIDE 28.3 mmol/L (21.0-32.0); CREATININE - SERUM 1.1 mg/dL (0.6-1.3); POTASSIUM - SERUM 4.2 mmol/L (3.5-5.1)
[2020-07-07 16:38] LABS: BASOPHILS 0.3 % (0-2); HEMATOCRIT 44.1 % (42.0-54.0); HEMOGLOBIN 14.5 g/dL (13.5-17.5); IMMATURE GRANULOCYTES 0.4 % (0-5); LYMPHOCYTES 27.1 % (15-50); MCH 29.1 pg (26.0-34.0); MCHC 32.9 g/dL (31.0-37.0); MCV 88.6 fL (80.0-100.0); MEAN PLATELET VOLUME 10.9 fL (7.4-10.4); MONOCYTES 8.1 % (2-11); NEUTROPHILS 63.1 % (40-80); PLATELET COUNT 229 10x3/uL (130-400); RBC 4.98 10x6/uL (4.20-6.10); RDW 13.9 % (11.5-14.5); WBC 7.8 10x3/uL (4.8-10.8)
[2020-07-07 16:47] LABS: ALBUMIN 3.1 g/dL (3.4-5.0); BILIRUBIN - TOTAL 0.25 mg/dL (0.2-1.3); MAGNESIUM - SERUM 1.9 mg/dL (1.8-2.4); PROTEIN - SERUM 6.9 g/dL (6.4-8.2)
--- NOTE | 2020-07-07 18:16 | NUR ---
ACCORDING TO THE SUICIDE ASSESSMENT THE PATIENT RATES HIGH AND HE WILL REQUIRE A 1:1 OBSERVATION. PROVIDE A SAFETY PLAN AND SUICIDE RESOURCE FLYER.
[2020-07-08 15:41] VITALS: BP 134/73
== END 2020-07-08 15:42 ==
LOC: D.ER 15:40
PROVIDERS: Emergency Medicine
DX: F32.9 Major depressive disorder, single episode, unspecified (principal); R45.851 Suicidal ideations; G62.9 Polyneuropathy, unspecified; I50.9 Heart failure, unspecified; J44.9 Chronic obstructive pulmonary disease, unspecified; Z72.0 Tobacco use

== ENCOUNTER 2021-03-05 17:41 | Emergency (ER) | payer MEDICAID ==
[2020-07-07 16:03] VITALS: Ht 195.6 cm; Wt 136.4 kg
[~2021-03-05] VITALS: Ht 195.6 cm; Wt 136.4 kg
[2021-03-05 17:46] VITALS: BP 140/76
[2021-03-05] MEDS ORDERED: CYCLOBENZAPRINE10 MG PO (18:29)
== END 2021-03-05 19:30 | disposition home or self-care (01) ==
LOC: D.ER 17:41
DX: M54.16 Radiculopathy, lumbar region (principal); I50.9 Heart failure, unspecified; J44.9 Chronic obstructive pulmonary disease, unspecified; G62.9 Polyneuropathy, unspecified; Z72.0 Tobacco use